=== PATIENT | male | born 1940 | race Caucasian/White ===

== ENCOUNTER → 2016-11-10 | Outpatient (REF) | payer MEDICARE, BC ==
[~2016-11-10] MED LIST: ALLE12TA31 PO; ASCO250T PO; ASPI1TAB PO; ATOR1TAB21 PO; BIMA01SOL OU; CENTTAB PO; CENTTAB16 PO; CEPH500C PO; CLOP75TA2 PO; COUM1TAB19 PO; COUM2.5T11 PO; METO25TAB PO; MOME50SP; MYRB50TA PO; OPTI0.5D5 OU; PERC5TAB6 PO; PLAV75TA38 PO; PRAV1TAB39 PO; PRAV40TA2 PO; REFR0.5D8 OU; TAMS0.4C2 PO; TIZA4CAP3 PO; TRAM50TA2 PO; TUMS500C PO; VITA-130 PO; VITA100066 PO; VITMTA PO; WARF4TAB51 PO; tylenol OR
[2016-11-10 12:23] LABS: MEAN CORPUSCULAR HEMOGLOBIN 28.3 pg (27.0-33.0); MEAN CORPUSCULAR HGB CONC 32.9 g/dl (32.0-36.5); MEAN CORPUSCULAR VOLUME 85.9 fl (80.0-96.0); RED CELL DISTRIBUTION WIDTH 16.9 % (11.5-14.5); WHITE BLOOD COUNT 9.6 K/mm3 (4.0-10.0)
[2016-11-10 12:25] LABS: CALCIUM LEVEL 9.4 MG/DL (8.8-10.2); CREATININE FOR GFR 1.33 MG/DL (0.70-1.30); GLOMERULAR FILTRATION RATE 55.4 (>42); POTASSIUM SERUM 4.9 MEQ/L (3.5-5.1)
== END ==
LOC: M SFHCPLAZ 09:24
PROVIDERS: ATTEND Family Medicine
DX: C64.2 Malignant neoplasm of left kidney, except renal pelvis (principal)
CPT/HCPCS: 36415; 80048; 85027; 85610; G0463

== ENCOUNTER → 2017-01-12 | Outpatient (REF) | payer MEDICARE, BC ==
[2017-01-12 15:52] LABS: MEAN CORPUSCULAR HEMOGLOBIN 26.5 pg (27.0-33.0); MEAN CORPUSCULAR HGB CONC 31.1 g/dl (32.0-36.5); MEAN CORPUSCULAR VOLUME 85.2 fl (80.0-96.0); RED CELL DISTRIBUTION WIDTH 15.4 % (11.5-14.5); WHITE BLOOD COUNT 9.9 K/mm3 (4.0-10.0)
[2017-01-12 15:58] LABS: ALBUMIN/GLOBULIN RATIO 0.49 (1.00-1.93); BILIRUBIN,TOTAL 0.4 MG/DL (0.2-1.0); CALCIUM LEVEL 8.8 MG/DL (8.8-10.2); CREATININE FOR GFR 1.34 MG/DL (0.70-1.30); GLOMERULAR FILTRATION RATE 54.9 (>42); TOTAL PROTEIN 6.1 GM/DL (6.4-8.2)
[2017-01-12 16:04] LABS: POTASSIUM SERUM 5.5 MEQ/L (3.5-5.1)
== END ==
LOC: M LABDRWSH 15:27
PROVIDERS: ATTEND Nurse Practitioner Family
DX: D64.9 Anemia, unspecified (principal); R06.02 Shortness of breath; N18.1 Chronic kidney disease, stage 1; Z90.5 Acquired absence of kidney

== ENCOUNTER 2017-01-14 11:49 | Inpatient (IN) | payer MEDICARE, BC ==
[~2017-01-14] VITALS: Ht 172.7 cm; Wt 76.8 kg
[2017-01-14] MEDS ORDERED: NS 1,000 ML IV SCH (12:56)
[2017-01-14] MEDS ORDERED: ONDANSETRON 4MG/2ML VIAL (J2405) IV ONE (13:00)
[2017-01-14 13:28] LABS: BASO % 0.2 % (0.0-1.0); EOS # 0.1 K/mm3 (0.0-0.50); EOS % 0.7 % (0.0-3.0); LARGE UNSTAINED CELL # 0.2 K/mm3 (0.0-0.4); LARGE UNSTAINED CELL % 1.8 % (0.0-4.0); LYMPH # 0.9 K/mm3 (1.5-4.5); LYMPH % 6.5 % (24.0-44.0); MEAN CORPUSCULAR HEMOGLOBIN 26.2 pg (27.0-33.0); NEUTROPHILS # 9.4 K/mm3 (1.8-7.7); NEUTROPHILS % 81.9 % (36.0-66.0); PLATELET COUNT, AUTOMATED 715 k/mm3 (150-450); RED CELL DISTRIBUTION WIDTH 15.5 % (11.5-14.5); WHITE BLOOD COUNT 11.5 K/mm3 (4.0-10.0)
--- NOTE | 2017-01-14 14:00 | REP ---
Clinical: Abdominal distension with pain and nausea. Comparison: 07/14/2016. Findings: Lung bases are clear. Marked ascites noted throughout the abdomen and pelvis with considerations for omental caking. The liver appears mildly decreased in size and a subtle nodular contour cannot be excluded raising the possibility of cirrhosis as well. The spleen, gallbladder, pancreas, right kidney and adrenal gland appear relatively normal for noncontrast evaluation. The patient is status post left nephrectomy. The enteric system is without obstruction. Evaluation of the pelvis is severely limited by metallic streak artifact from bilateral hip prostheses. Impression: 1. Marked ascites and suspicion for omental caking. Further evaluation is significantly limited by the lack of both oral and intravenous contrast enhancement as well as surrounding fluid density. Differential diagnosis includes but is not limited to cirrhosis and occult neoplasm. 2. The patient is noted to be status post left nephrectomy. 3. Limited evaluation pelvis is due to metallic streak artifact from bilateral hip prostheses. Signed by Jorge Inman MD 01/14/2017 01:51 P
[2017-01-14 14:29] LABS: ALBUMIN 1.8 GM/DL (3.2-5.2); ALBUMIN/GLOBULIN RATIO 0.49 (1.00-1.93); ALKALINE PHOSPHATASE 132 U/L (45-117); ALT/SGPT 24 U/L (12-78); ANION GAP 10 MEQ/L (8-16); AST/SGOT 29 U/L (15-37); BILIRUBIN,DIRECT 0.1 MG/DL (0.0-0.2); BILIRUBIN,TOTAL 0.3 MG/DL (0.2-1.0); BLOOD UREA NITROGEN 16 MG/DL (7-18); CALCIUM LEVEL 8.3 MG/DL (8.8-10.2); CARBON DIOXIDE LEVEL 23 MEQ/L (21-32); CHLORIDE LEVEL 98 MEQ/L (98-107); CREATININE FOR GFR 1.23 MG/DL (0.70-1.30); GLOMERULAR FILTRATION RATE > 60.0 (>42); GLUCOSE, FASTING 113 MG/DL (83-110); SODIUM LEVEL 131 MEQ/L (136-145); TOTAL PROTEIN 5.5 GM/DL (6.4-8.2)
[2017-01-14 14:33] LABS: POTASSIUM SERUM 5.7 MEQ/L (3.5-5.1)
[2017-01-14 15:23] LABS: INR 11.48
[2017-01-14] MEDS ORDERED: PHYTONADIONE 10MG/ML INJECTION (J3430) SC ONE (15:45)
[2017-01-14] MEDS ORDERED: WARF-58 PO (16:16)
[2017-01-14] MEDS ORDERED: PRAV80TA2 PO (16:16)
[2017-01-14] MEDS ORDERED: IMOD2TAB16 PO (16:20)
[2017-01-14] MEDS ORDERED: VICKLIQ PO (16:20)
[2017-01-14] MEDS ORDERED: ONDA1TAB15 PO (16:20)
[2017-01-14] MEDS ORDERED: VICKLIQ28 PO (16:20)
[2017-01-14] MEDS ORDERED: OMEP20CA3 PO (16:20)
[2017-01-14] MEDS ORDERED: MIRT15TA3 PO (16:20)
--- NOTE | 2017-01-14 16:30 | ECGEPIP ---
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
[2017-01-14 18:00] VITALS: BP 130/83
[2017-01-14] MEDS ORDERED: LOPERAMIDE 2 MG CAP PO PRN (18:15)
[2017-01-14] MEDS: FUROSEMIDE 40 MG TAB PO SCH (18:39)
--- NOTE | 2017-01-14 18:45 | HPEPDOC ---
General Date of Admission Jan 14, 2017 at 15:59 Chief Complaint The patient is a 76-year-old male admitted with a reason for visit of Ascites. 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 The patient states that he noticed that his abdomen has increased in size, and that he has subsequently gained weight from this. In addition, the patient states that he does feel some shortness of breath because of the distention in his abdomen. He denies any associated fevers , chills, chest pain, palpitations, PND, orthopnea, lower extremity swelling, abdominal pain, nausea, vomiting, or diarrhea. In the ER, a CT scan of the abdomen was done which revealed marked ascites and suspicion for omental caking. Interventional radiology was called for a paracentesis in the ER, however the patient was noted to have a supratherapeutic INR of 11 secondary to Coumadin use. He has been given a dose of vitamin K. At this time, the patient will be admitted under the service of Dr. Erwin for further evaluation and management of the patient. Home Medications Scheduled Ascorbic Acid (Ascorbic Acid) 250 Mg Tab 250 MG PO QPM (Reported) DINNERTIME Aspirin (Aspirin 81) 81 Mg Tab 81 MG PO DAILY (Reported) Bimatoprost (Lumigan) 50 Drop/2.5 Ml Krystle 1 DROP OU QHS (Reported) Carboxymethylcellulose Sodium (Refresh Tears) 0.5 % Juan 1 DROP OU BID (Reported ) Cholecalciferol (Vitamin D) 1,000 Unit Tab 1,000 UNIT PO QPM (Reported) DINNERTIME Mirtazapine (Mirtazapine) 15 Mg Tab 15 MG PO QHS (Reported) Multivitamins (Centrum Silver) 1 Tab Tab 1 TAB PO DAILY (Reported) Omeprazole (Omeprazole) 20 Mg Cap 20 MG PO DAILY (Reported) Pravastatin Sodium (Pravastatin Sodium) 80 Mg Tab 80 MG PO QHS (Reported) Warfarin Sod (Warfarin Sodium) 3 Mg Tab 3 MG PO QPM (Reported) DINNERTIME Scheduled PRN (Juany Dayquil Cold & Flu 10-5-325 mg/15Ml) 1 Liq Liq 1 LIQ PO PRN PRN PRN COUGH /COLD (Reported) (Vicks Nyquil Cold & Flu 15-6.25-325 mg/15Ml) 1 Liq Liq 1 LIQ PO QHS PRN PRN COUGH/COLD (Reported) Loperamide Hcl (Imodium A-D) 2 Mg Tab 2 MG PO PRN PRN PRN DIARRHEA (Reported) Ondansetron HCl (Ondansetron HCl) 4 Mg Tab 4 MG PO TID PRN PRN NAUSEA OR VOMITING (Reported) Allergies Coded Allergies: No Known Drug Allergy (Unverified Allergy, Unknown, 01/24/13) Past Medical History Medical History As noted in the HPI. Surgical History Bilateral hip replacement, left knee replacement, left-sided nephrectomy, and AAA repair Family History Significant Family History: No pertinent family hx Social History * Smoker: former Smoker (quit smoking 40 years ago) Alcohol: Denies Drugs: denies Review of Symptoms Other systems 10 point review of systems negative unless otherwise specified in HPI. Physical Examination General Exam: Positive: Alert, Cooperative, No Acute Distress ENT Exam: Positive: Atraumatic, Mucous membr. moist/pink Neck Exam: Negative: JVD Chest Exam: Positive: Diminished, Negative: Rales, Wheezing Heart Exam: Positive: Normal S1, Normal S2, Rate Normal Abdomen Exam: Positive: Other (abdomen noted to be distended, positive for fluid wave), Tenderness Extremity Exam: Negative: Swelling, Tenderness Vital Signs As noted in the EMR Laboratory Data Labs 24H Laboratory Tests 2 01/14/17 12:38: White Blood Count 11.5H, Red Blood Count 4.00L, Hemoglobin 10.5L, Hematocrit 32.8L, Mean Corpuscular Volume 82.0, Mean Corpuscular Hemoglobin 26.2L, Mean Corpuscular Hemoglobin Concent 32.0, Red Cell Distribution Width 15.5H, Platelet Count 715H, Neutrophils (%) (Auto) 81.9H, Lymphocytes (%) (Auto) 6.5L, Monocytes (%) (Auto) 9.0H, Eosinophils (%) (Auto) 0.7, Basophils (%) (Auto) 0.2 , Neutrophils # (Auto) 9.4H, Lymphocytes # (Auto) 0.9L, Monocytes # (Auto) 1.0H , Eosinophils # (Auto) 0.1, Basophils # (Auto) 0.0, Large Unclassified Cells # 0.2, Large Unclassified Cells % 1.8, Prothromb Time International Ratio 11.48*H , Prothrombin Time 88.2H 01/14/17 13:39: Aspartate Amino Transf (AST/SGOT) 29, Alanine Aminotransferase (ALT/SGPT) 24, Alkaline Phosphatase 132H, Total Bilirubin 0.3, Direct Bilirubin 0.1, Albumin 1.8L, Albumin/Globulin Ratio 0.49L, Ammonia 15, Anion Gap 10, Calcium Level 8.3L , Glomerular Filtration Rate > 60.0, Lipase 102, Total Protein 5.5L CBC/BMP Laboratory Tests 01/14/17 12:38 Red Blood Count 4.00 L, Mean Corpuscular Volume 82.0, Mean Corpuscular Hemoglobin 26.2 L, Mean Corpuscular Hemoglobin Concent 32.0, Red Cell Distribution Width 15.5 H, Neutrophils (%) (Auto) 81.9 H, Lymphocytes (%) (Auto ) 6.5 L, Monocytes (%) (Auto) 9.0 H, Eosinophils (%) (Auto) 0.7, Basophils (%) ( Auto) 0.2, Neutrophils # (Auto) 9.4 H, Lymphocytes # (Auto) 0.9 L, Monocytes # ( Auto) 1.0 H, Eosinophils # (Auto) 0.1, Basophils # (Auto) 0.0 01/14/17 13:39 Microbiology Microbiology 01/14/17 Blood Culture, Received Pending Plan / VTE VTE Prophylaxis Ordered?: No VTE Exclusion Pharmacological: Other (Elevated INR) Plan Plan Ascites possibly secondary to Neoplastic etiology, in a patient with underlying renal cell carcinoma of the left kidney status post nephrectomy CT scan of the abdomen notable for marked ascites and suspicion for omental caking We will repeat the CT scan of the abdomen with contrast for better delineation Unable to have paracentesis done today due to Coumadin coagulopathy Liver function tests otherwise within normal limits Patient started on 40 mg of Lasix twice a day Will follow-up with CT with contrast studies, and monitor I's and O's while on diuretic Coumadin coagulopathy INR noted to be 11 in the ER Hold Coumadin No active bleeding diatheses noted Hemoglobin stable Patient given 10 mg of vitamin K I have extensively discussed the risk of further possibility of blood clots upon reversal of INR levels with the patient, he has verbalized understanding of this and its risks and benefits. We'll follow-up on INR Hyperkalemia Serum potassium noted to be 5.7 EKG with no acute changes noted Patient will be started on Lasix for ascites Will follow-up on serum K in the a.m. Renal cell carcinoma of the left kidney status post nephrectomy Surgery was done at [facility] in October 2016 Serum creatinine noted to be 1.23 Will obtain records from [facility] History of abdominal aortic aneurysm status post repair in September 2016 Patient on aspirin, statin and Coumadin at home We'll withhold aspirin and Coumadin secondary to elevated INR We'll obtain records from [facility] Left renal vein thrombosis On Coumadin Currently being held given elevated INR Hypertension, stable Dyslipidemia Continue statin History of CVA Patient on aspirin, statin Will withhold aspirin now given elevated INR Osteoarthritis, stable DVT prophylaxis-patient was supratherapeutic INR at this time Patient will be admitted under the service of Dr. Erwin, who will begin to follow the patient on 01/15 at 7 AM. RADHA JORDAN MD Jan 14, 2017 18:45
[2017-01-14] MEDS: ASCORBIC ACID 250 MG TAB PO SCH (19:40)
[2017-01-14] MEDS: MIRTAZAPINE 15 MG TAB PO SCH (19:40)
[2017-01-14] MEDS: ONDANSETRON 4MG/2ML VIAL (J2405) IV PRN (19:40)
[2017-01-14] MEDS: PRAVASTATIN 20 MG TAB PO SCH (19:40)
[2017-01-14 22:00] VITALS: BP 149/72
[2017-01-15] MEDS: ONDANSETRON 4MG/2ML VIAL (J2405) IV PRN ×3 (05:20→20:41)
[2017-01-15 05:47] LABS: MEAN CORPUSCULAR HEMOGLOBIN 26.3 pg (27.0-33.0); MEAN CORPUSCULAR HGB CONC 32.3 g/dl (32.0-36.5); MEAN CORPUSCULAR VOLUME 81.5 fl (80.0-96.0); RED CELL DISTRIBUTION WIDTH 15.9 % (11.5-14.5); WHITE BLOOD COUNT 9.7 K/mm3 (4.0-10.0)
[2017-01-15 06:00] VITALS: BP 121/57
[2017-01-15 06:05] LABS: ALBUMIN 1.6 GM/DL (3.2-5.2); ALBUMIN/GLOBULIN RATIO 0.37 (1.00-1.93); BILIRUBIN,TOTAL 0.3 MG/DL (0.2-1.0); CALCIUM LEVEL 8.3 MG/DL (8.8-10.2); CREATININE FOR GFR 1.29 MG/DL (0.70-1.30); GLOMERULAR FILTRATION RATE 57.3 (>42); MAGNESIUM LEVEL 2.2 MG/DL (1.8-2.4); POTASSIUM SERUM 4.9 MEQ/L (3.5-5.1); TOTAL PROTEIN 5.9 GM/DL (6.4-8.2)
[2017-01-15 06:23] LABS: INR 8.44
[2017-01-15] MEDS ORDERED: GASTROGRAFIN SOLUTION 30ML PO ONE (07:00)
[2017-01-15] MEDS ORDERED: GASTROGRAFIN SOLUTION 30ML (Q9963) PO ONE (07:30)
[2017-01-15] MEDS: OMEPRAZOLE 20 MG CAP PO SCH ×2 (09:00→09:45)
[2017-01-15] MEDS: FUROSEMIDE 40 MG TAB PO SCH ×2 (09:45→17:38)
[2017-01-15] MEDS: MULTIVITAMINS/MINERALS THERAP 1 TAB PO SCH (09:45)
[2017-01-15] MEDS ORDERED: PHYTONADIONE 10MG/ML INJECTION (J3430) SC ONE (10:00)
[2017-01-15] MEDS: PANTOPRAZOLE 40MG INJ (PROTONIX) (C9113) IV SCH (10:50)
[2017-01-15] MEDS: METOCLOPRAMIDE INJ 10MG/2ML VIAL (J2765) IV SCH ×2 (10:50→18:02)
--- NOTE | 2017-01-15 11:28 | IPNPDOC ---
Subjective Date Seen The patient was seen on 01/15/17. Subjective Chief Complaint/HPI The patient is a 76-year-old male admitted with a reason for visit of Ascites. Events since last encounter continues to have nausea and had 1 episode of vomiting after drinking the contrast, says has noticed the abdominal distension for the past 2 weeks, has a chronic cough going on for months, no fever or chills, no chest pain or shortness of breath. Objective Physical Examination General Exam: Positive: Alert, Cooperative, No Acute Distress ENT Exam: Positive: Atraumatic, Mucous membr. moist/pink Neck Exam: Negative: JVD Chest Exam: Positive: Diminished, Negative: Rales, Wheezing Heart Exam: Positive: Normal S1, Normal S2, Rate Normal Abdomen Exam: Positive: Other (abdomen noted to be distended, positive for fluid wave), Tenderness Extremity Exam: Negative: Swelling, Tenderness Assessment /Plan Problems (1) Ascites Status: Acute Problem Text: as per CT looks like malignant ascites will tap the patient once inr is corrected. (2) Warfarin-induced coagulopathy Status: Acute Problem Text: will give another dose of vit K no signs of bleeding. (3) History of renal cell cancer Status: Chronic Problem Text: s/p left radical nephrectomy in sep 2016 in [facility] at that time the surgeon felt that he was able to remove all. has discussion with 2 oncologists about chemotherapy post surgery and they felt with his age and physical comorbidities he was not a good candidate and will not be able to tolerate it. (4) Thoracic aortic aneurysm Status: Chronic Problem Text: s/p repair at [facility] in july 2016. (5) HTN (hypertension) Status: Chronic (6) Glaucoma Status: Chronic (7) BPH (benign prostatic hyperplasia) Status: Chronic (8) Renal vein thrombosis Status: Chronic Problem Text: had left renal vein thrombosis extending upto the IVC in may 2016 (9) Hyperlipidemia Status: Chronic (10) CVA (cerebral vascular accident) Onset Date: 10/14/2014 Status: Resolved Plan/VTE VTE Prophylaxis Ordered?: Yes VTE Exclusion Pharmacological: Other (Elevated INR) VS, I&O, 24H, Fishbone Vital Signs/I&O Vital Signs Date Time Temp Pulse Resp B/P Pulse Ox O2 Delivery O2 Flow Rate FiO2 01/15/17 06:00 98.9 112 18 121/57 95 Room Air I&O- Last 24 Hours up to 6 AM 3/25/17 06:00 Intake Total 480 ml Output Total 600 ml Balance -120 ml Laboratory Data 24H LABS Laboratory Tests 2 01/14/17 12:38: White Blood Count 11.5H, Red Blood Count 4.00L, Hemoglobin 10.5L, Hematocrit 32.8L, Mean Corpuscular Volume 82.0, Mean Corpuscular Hemoglobin 26.2L, Mean Corpuscular Hemoglobin Concent 32.0, Red Cell Distribution Width 15.5H, Platelet Count 715H, Neutrophils (%) (Auto) 81.9H, Lymphocytes (%) (Auto) 6.5L, Monocytes (%) (Auto) 9.0H, Eosinophils (%) (Auto) 0.7, Basophils (%) (Auto) 0.2 , Neutrophils # (Auto) 9.4H, Lymphocytes # (Auto) 0.9L, Monocytes # (Auto) 1.0H , Eosinophils # (Auto) 0.1, Basophils # (Auto) 0.0, Large Unclassified Cells # 0.2, Large Unclassified Cells % 1.8, Prothromb Time International Ratio 11.48*H , Prothrombin Time 88.2H 01/14/17 13:39: Aspartate Amino Transf (AST/SGOT) 29, Alanine Aminotransferase (ALT/SGPT) 24, Alkaline Phosphatase 132H, Total Bilirubin 0.3, Direct Bilirubin 0.1, Albumin 1.8L, Albumin/Globulin Ratio 0.49L, Ammonia 15, Anion Gap 10, Calcium Level 8.3L , Glomerular Filtration Rate > 60.0, Lipase 102, Total Protein 5.5L 01/15/17 05:18: Prothromb Time International Ratio 8.44*H, Prothrombin Time 69.5H, Aspartate Amino Transf (AST/SGOT) 27, Alanine Aminotransferase (ALT/SGPT) 21, Alkaline Phosphatase 119H, Total Bilirubin 0.3, Albumin 1.6L, Albumin/Globulin Ratio 0.37L, Anion Gap 10, Calcium Level 8.3L, Glomerular Filtration Rate 57.3, Total Protein 5.9L, Blood Urea Nitrogen 15, Creatinine 1.29, Sodium Level 132L, Potassium Level 4.9, Chloride Level 98, Carbon Dioxide Level 24, Magnesium Level 2.2 CBC/BMP Laboratory Tests 01/14/17 12:38 Red Blood Count 4.00 L, Mean Corpuscular Volume 82.0, Mean Corpuscular Hemoglobin 26.2 L, Mean Corpuscular Hemoglobin Concent 32.0, Red Cell Distribution Width 15.5 H, Neutrophils (%) (Auto) 81.9 H, Lymphocytes (%) (Auto ) 6.5 L, Monocytes (%) (Auto) 9.0 H, Eosinophils (%) (Auto) 0.7, Basophils (%) ( Auto) 0.2, Neutrophils # (Auto) 9.4 H, Lymphocytes # (Auto) 0.9 L, Monocytes # ( Auto) 1.0 H, Eosinophils # (Auto) 0.1, Basophils # (Auto) 0.0 01/14/17 13:39 01/15/17 05:18 Red Blood Count 3.38 L, Mean Corpuscular Volume 81.5, Mean Corpuscular Hemoglobin 26.3 L, Mean Corpuscular Hemoglobin Concent 32.3, Red Cell Distribution Width 15.9 H, Calcium Level 8.3 L, Aspartate Amino Transf (AST/SGOT ) 27, Alanine Aminotransferase (ALT/SGPT) 21, Alkaline Phosphatase 119 H, Total Bilirubin 0.3, Total Protein 5.9 L, Albumin 1.6 L Microbiology Microbiology 01/14/17 Blood Culture, Received Pending 01/14/17 Blood Culture, Received Pending IAIN LAYTON MD Jan 15, 2017 11:28
[2017-01-15 14:00] VITALS: BP 111/56
[2017-01-15] MEDS: MIRTAZAPINE 15 MG TAB PO SCH (20:41)
[2017-01-15] MEDS: ASCORBIC ACID 250 MG TAB PO SCH (20:41)
[2017-01-15] MEDS: PRAVASTATIN 20 MG TAB PO SCH (20:41)
[2017-01-15 22:00] VITALS: BP 104/58
[2017-01-16] MEDS: METOCLOPRAMIDE INJ 10MG/2ML VIAL (J2765) IV SCH ×3 (03:59→18:15)
[2017-01-16 05:29] LABS: MEAN CORPUSCULAR HGB CONC 32.7 g/dl (32.0-36.5); MEAN CORPUSCULAR VOLUME 79.4 fl (80.0-96.0); RED CELL DISTRIBUTION WIDTH 15.7 % (11.5-14.5); WHITE BLOOD COUNT 10.1 K/mm3 (4.0-10.0)
[2017-01-16 05:34] LABS: INR 3.39
[2017-01-16 05:45] LABS: ALBUMIN 1.5 GM/DL (3.2-5.2); ALBUMIN/GLOBULIN RATIO 0.34 (1.00-1.93); BILIRUBIN,TOTAL 0.4 MG/DL (0.2-1.0); CALCIUM LEVEL 8.2 MG/DL (8.8-10.2); CREATININE FOR GFR 1.41 MG/DL (0.70-1.30); GLOMERULAR FILTRATION RATE 51.8 (>42); POTASSIUM SERUM 4.8 MEQ/L (3.5-5.1); TOTAL PROTEIN 5.9 GM/DL (6.4-8.2)
[2017-01-16 06:00] VITALS: BP 105/53
--- NOTE | 2017-01-16 06:01 | IPNPDOC ---
Subjective Date Seen The patient was seen on 01/16/17. Subjective Chief Complaint/HPI The patient is a 76-year-old male admitted with a reason for visit of Ascites. Events since last encounter no new complaints today , has intermitten nausea , INR almost corrected. Objective Physical Examination General Exam: Positive: Alert, Cooperative, No Acute Distress ENT Exam: Positive: Atraumatic, Mucous membr. moist/pink Neck Exam: Negative: JVD Chest Exam: Positive: Diminished, Negative: Rales, Wheezing Heart Exam: Positive: Normal S1, Normal S2, Rate Normal Abdomen Exam: Positive: Other (abdomen noted to be distended, positive for fluid wave), Tenderness Extremity Exam: Negative: Swelling, Tenderness Assessment /Plan Problems (1) Ascites Status: Acute Problem Text: as per CT looks like malignant ascites will tap the patient once inr is corrected. (2) Warfarin-induced coagulopathy Status: Acute Problem Text: will give another dose of vit K no signs of bleeding. (3) History of renal cell cancer Status: Chronic Problem Text: s/p left radical nephrectomy in sep 2016 in [facility] at that time the surgeon felt that he was able to remove all. has discussion with 2 oncologists about chemotherapy post surgery and they felt with his age and physical comorbidities he was not a good candidate and will not be able to tolerate it. (4) Thoracic aortic aneurysm Status: Chronic Problem Text: s/p repair at [facility] in july 2016. (5) HTN (hypertension) Status: Chronic (6) Glaucoma Status: Chronic (7) BPH (benign prostatic hyperplasia) Status: Chronic (8) Renal vein thrombosis Status: Chronic Problem Text: had left renal vein thrombosis extending upto the IVC in may 2016 (9) Hyperlipidemia Status: Chronic (10) CVA (cerebral vascular accident) Onset Date: 10/14/2014 Status: Resolved Plan/VTE VTE Prophylaxis Ordered?: Yes VTE Exclusion Pharmacological: Other (Elevated INR) VS, I&O, 24H, Fishbone Vital Signs/I&O Vital Signs Date Time Temp Pulse Resp B/P Pulse Ox O2 Delivery O2 Flow Rate FiO2 01/15/17 22:00 99.4 109 20 104/58 96 Room Air I&O- Last 24 Hours up to 6 AM 01/16/17 06:00 Intake Total 900 ml Output Total 300 ml Balance 600 ml Laboratory Data 24H LABS Laboratory Tests 2 01/16/17 05:10: Blood Urea Nitrogen 18, Creatinine 1.41H, Sodium Level 132L, Potassium Level 4.8 , Chloride Level 97L, Carbon Dioxide Level 25, Calcium Level 8.2L, Aspartate Amino Transf (AST/SGOT) 33, Alanine Aminotransferase (ALT/SGPT) 23, Alkaline Phosphatase 126H, Total Bilirubin 0.4, Total Protein 5.9L, Albumin 1.5L, Albumin /Globulin Ratio 0.34L, Anion Gap 10, Glomerular Filtration Rate 51.8, Prothromb Time International Ratio 3.39, Prothrombin Time 34.3H CBC/BMP Laboratory Tests 01/16/17 05:10 Calcium Level 8.2 L, Aspartate Amino Transf (AST/SGOT) 33, Alanine Aminotransferase (ALT/SGPT) 23, Alkaline Phosphatase 126 H, Total Bilirubin 0.4 , Total Protein 5.9 L, Albumin 1.5 L, Red Blood Count 3.46 L, Mean Corpuscular Volume 79.4 L, Mean Corpuscular Hemoglobin 26.0 L, Mean Corpuscular Hemoglobin Concent 32.7, Red Cell Distribution Width 15.7 H Microbiology Microbiology 01/14/17 Blood Culture - Preliminary, Resulted No growth after 24 hours . All specim... 01/14/17 Blood Culture - Preliminary, Resulted No growth after 24 hours . All specim... IAIN LAYTON MD Jan 16, 2017 06:01
--- NOTE | 2017-01-16 09:32 | REP ---
Clinical: Ascites. Possible metastatic disease. Comparison: 01/14/2017, 07/14/2016. Findings: Marked ascites and mesenteric edematous changes are again appreciated and unchanged when compared to 01/14/2017. Underlying adenopathy and/or mass lesions within the abdomen and pelvis may be obscured by surrounding ascites. Omental caking suggesting metastatic disease versus benign edematous infiltration to the omentum cannot be differentiated. The enteric system is unremarkable. The liver has a subtle coarsened echotexture and underlying hepatic metastatic disease versus hepatocellular disease cannot be excluded. Spleen, pancreas, gallbladder, right adrenal gland and kidney appear normal. Pelvis is incompletely evaluated due to metallic streak artifact from bilateral hip prostheses. Osseous structures demonstrate nonspecific degenerative type changes. Impression: Marked ascites and edematous changes to the mesentery similar to prior examination. Underlying adenopathy and metastatic disease as well as mass lesion cannot be excluded and may be is obscured by surrounding fluid. Signed by Jorge Inman MD 01/16/2017 09:23 A
[2017-01-16] MEDS: MULTIVITAMINS/MINERALS THERAP 1 TAB PO SCH (10:45)
[2017-01-16] MEDS: FUROSEMIDE 40 MG TAB PO SCH (10:45)
[2017-01-16] MEDS: PANTOPRAZOLE 40MG INJ (PROTONIX) (C9113) IV SCH (10:45)
[2017-01-16] MEDS: BENZONATATE 100 MG CAP PO PRN (16:34)
[2017-01-16] MEDS: ONDANSETRON 4MG/2ML VIAL (J2405) IV PRN (16:44)
[2017-01-16] MEDS: ASCORBIC ACID 250 MG TAB PO SCH (20:32)
[2017-01-16] MEDS: MIRTAZAPINE 15 MG TAB PO SCH (20:33)
[2017-01-16] MEDS: PRAVASTATIN 20 MG TAB PO SCH (20:33)
[2017-01-16 22:00] VITALS: BP 111/70
[2017-01-17] MEDS: METOCLOPRAMIDE INJ 10MG/2ML VIAL (J2765) IV SCH ×3 (03:56→18:54)
[2017-01-17 06:00] VITALS: BP 114/58
[2017-01-17 06:47] LABS: MEAN CORPUSCULAR HEMOGLOBIN 25.8 pg (27.0-33.0); MEAN CORPUSCULAR HGB CONC 32.2 g/dl (32.0-36.5); MEAN CORPUSCULAR VOLUME 80.1 fl (80.0-96.0); RED CELL DISTRIBUTION WIDTH 15.7 % (11.5-14.5); WHITE BLOOD COUNT 9.6 K/mm3 (4.0-10.0)
[2017-01-17 06:49] LABS: INR 2.27
[2017-01-17 07:03] LABS: ALBUMIN 1.5 GM/DL (3.2-5.2); ALBUMIN/GLOBULIN RATIO 0.34 (1.00-1.93); BILIRUBIN,TOTAL 0.3 MG/DL (0.2-1.0); CALCIUM LEVEL 8.1 MG/DL (8.8-10.2); CREATININE FOR GFR 1.29 MG/DL (0.70-1.30); GLOMERULAR FILTRATION RATE 57.3 (>42); POTASSIUM SERUM 4.5 MEQ/L (3.5-5.1); TOTAL PROTEIN 5.9 GM/DL (6.4-8.2)
[2017-01-17] MEDS: MULTIVITAMINS/MINERALS THERAP 1 TAB PO SCH (08:41)
--- NOTE | 2017-01-17 08:58 | IPNPDOC ---
Subjective Date Seen The patient was seen on 01/17/17. Subjective Chief Complaint/HPI The patient is a 76-year-old male admitted with a reason for visit of Ascites. Events since last encounter no diarrhea overnight. Had last diarrhea last night. INR better. planned for paracentesis today. Objective Physical Examination General Exam: Positive: Alert, Cooperative, No Acute Distress ENT Exam: Positive: Atraumatic, Mucous membr. moist/pink Neck Exam: Negative: JVD Chest Exam: Positive: Diminished, Negative: Rales, Wheezing Heart Exam: Positive: Normal S1, Normal S2, Rate Normal Abdomen Exam: Positive: Other (abdomen noted to be distended, positive for fluid wave), Tenderness Extremity Exam: Negative: Swelling, Tenderness Assessment /Plan Problems (1) Ascites Status: Acute Problem Text: as per CT looks like malignant ascites will tap the patient once inr is corrected. (2) Warfarin-induced coagulopathy Status: Acute Problem Text: will give another dose of vit K no signs of bleeding. (3) History of renal cell cancer Status: Chronic Problem Text: s/p left radical nephrectomy in sep 2016 in [facility] at that time the surgeon felt that he was able to remove all. has discussion with 2 oncologists about chemotherapy post surgery and they felt with his age and physical comorbidities he was not a good candidate and will not be able to tolerate it. (4) Thoracic aortic aneurysm Status: Chronic Problem Text: s/p repair at [facility] in july 2016. (5) HTN (hypertension) Status: Chronic (6) Glaucoma Status: Chronic (7) BPH (benign prostatic hyperplasia) Status: Chronic (8) Renal vein thrombosis Status: Chronic Problem Text: had left renal vein thrombosis extending upto the IVC in may 2016 (9) Hyperlipidemia Status: Chronic (10) CVA (cerebral vascular accident) Onset Date: 10/14/2014 Status: Resolved Plan/VTE VTE Prophylaxis Ordered?: Yes VTE Exclusion Pharmacological: Other (Elevated INR) VS, I&O, 24H, Fishbone Vital Signs/I&O Vital Signs Date Time Temp Pulse Resp B/P Pulse Ox O2 Delivery O2 Flow Rate FiO2 01/17/17 06:00 98.6 109 20 114/58 94 Room Air I&O- Last 24 Hours up to 6 AM 01/17/17 06:00 Intake Total 1740 ml Output Total 50 ml Balance 1690 ml Laboratory Data 24H LABS Laboratory Tests 2 01/17/17 06:04: Blood Urea Nitrogen 21H, Creatinine 1.29, Sodium Level 132L, Potassium Level 4.5 , Chloride Level 97L, Carbon Dioxide Level 24, Calcium Level 8.1L, Aspartate Amino Transf (AST/SGOT) 67H, Alanine Aminotransferase (ALT/SGPT) 38, Alkaline Phosphatase 132H, Total Bilirubin 0.3, Total Protein 5.9L, Albumin 1.5L, Albumin /Globulin Ratio 0.34L, Anion Gap 11, Glomerular Filtration Rate 57.3, Prothromb Time International Ratio 2.27, Prothrombin Time 25.1H CBC/BMP Laboratory Tests 01/17/17 06:04 Calcium Level 8.1 L, Aspartate Amino Transf (AST/SGOT) 67 H, Alanine Aminotransferase (ALT/SGPT) 38, Alkaline Phosphatase 132 H, Total Bilirubin 0.3 , Total Protein 5.9 L, Albumin 1.5 L, Red Blood Count 3.37 L, Mean Corpuscular Volume 80.1, Mean Corpuscular Hemoglobin 25.8 L, Mean Corpuscular Hemoglobin Concent 32.2, Red Cell Distribution Width 15.7 H Microbiology Microbiology 01/14/17 Blood Culture - Preliminary, Resulted No Growth after 48 hours. All Specime... 01/14/17 Blood Culture - Preliminary, Resulted No Growth after 48 hours. All Specime... 01/16/17 Gastrointestinal Tract Panel (PCR) - Final, Complete IAIN LAYTON MD Jan 17, 2017 08:58
[2017-01-17] MEDS: PANTOPRAZOLE 40MG INJ (PROTONIX) (C9113) IV SCH (10:24)
[2017-01-17] MEDS ORDERED: PHYTONADIONE 5 MG TAB PO ONE (12:00)
[2017-01-17 14:00] VITALS: BP 125/72
[2017-01-17] MEDS: ONDANSETRON 4MG/2ML VIAL (J2405) IV PRN (14:56)
[2017-01-17] MEDS: LOPERAMIDE 2 MG CAP PO PRN (16:31)
[2017-01-17] MEDS: MIRTAZAPINE 15 MG TAB PO SCH (20:36)
[2017-01-17] MEDS: PRAVASTATIN 20 MG TAB PO SCH (20:36)
[2017-01-17] MEDS: ASCORBIC ACID 250 MG TAB PO SCH (20:36)
[2017-01-17 22:00] VITALS: BP 108/62
[2017-01-17] MEDS: LATANOPROST 0.005% OPHTH SOLN 2.5 ML OU SCH (22:14)
[2017-01-18] MEDS: METOCLOPRAMIDE INJ 10MG/2ML VIAL (J2765) IV SCH ×3 (03:03→18:15)
[2017-01-18 06:00] VITALS: BP 115/55
[2017-01-18 06:36] LABS: MEAN CORPUSCULAR HEMOGLOBIN 25.4 pg (27.0-33.0); MEAN CORPUSCULAR HGB CONC 31.9 g/dl (32.0-36.5); MEAN CORPUSCULAR VOLUME 79.5 fl (80.0-96.0); RED CELL DISTRIBUTION WIDTH 15.9 % (11.5-14.5)
[2017-01-18 06:40] LABS: INR 1.73
[2017-01-18 07:01] LABS: ALBUMIN 1.5 GM/DL (3.2-5.2); ALBUMIN/GLOBULIN RATIO 0.34 (1.00-1.93); BILIRUBIN,TOTAL 0.4 MG/DL (0.2-1.0); CALCIUM LEVEL 8.1 MG/DL (8.8-10.2); CREATININE FOR GFR 1.25 MG/DL (0.70-1.30); GLOMERULAR FILTRATION RATE 59.5 (>42); POTASSIUM SERUM 4.6 MEQ/L (3.5-5.1); TOTAL PROTEIN 5.9 GM/DL (6.4-8.2)
[2017-01-18] MEDS: MULTIVITAMINS/MINERALS THERAP 1 TAB PO SCH (08:36)
[2017-01-18] MEDS: ONDANSETRON 4MG/2ML VIAL (J2405) IV PRN ×3 (08:51→22:49)
[2017-01-18] MEDS: BENZONATATE 100 MG CAP PO PRN (08:51)
[2017-01-18 11:30] VITALS: BP 130/68
[2017-01-18] MEDS: PANTOPRAZOLE 40MG INJ (PROTONIX) (C9113) IV SCH (11:52)
[2017-01-18 12:03] LABS: SPEC. GRAVITY BODY FLUIDS 1.028 (NOT ESTABLISHED)
[2017-01-18 12:20] LABS: TOTAL PROTEIN, BODY FLUID 4.4 G/DL (NOT ESTABLISHED)
[2017-01-18 12:21] LABS: RBC ASCITES FLUID 54 (<10mm3 cells/uL); TNC ASCITES FLUID 556 cells/uL (0-20)
[2017-01-18 12:22] LABS: BF DIFF IF INDICATED? YES (NO)
[2017-01-18 13:00] LABS: CC BF DIFF EXAM CYTOCENTRIFUGE
[2017-01-18 14:00] VITALS: BP 118/62
--- NOTE | 2017-01-18 15:02 | IPNPDOC ---
Subjective Date Seen The patient was seen on 01/18/17. Subjective Chief Complaint/HPI The patient is a 76-year-old male admitted with a reason for visit of Ascites. Events since last encounter pt seen and examined, doing well, denies any abd pain but complaining of low back pain. Objective Physical Examination General Exam: Positive: Alert, Cooperative, No Acute Distress ENT Exam: Positive: Atraumatic, Mucous membr. moist/pink Neck Exam: Negative: JVD Chest Exam: Positive: Diminished, Negative: Rales, Wheezing Heart Exam: Positive: Normal S1, Normal S2, Rate Normal Abdomen Exam: Positive: Other (abdomen noted to be distended, positive for fluid wave), Tenderness Extremity Exam: Negative: Swelling, Tenderness Assessment /Plan Problems (1) Ascites Status: Acute Problem Text: * as per CT looks like malignant ascites * paracentesis today (2) Warfarin-induced coagulopathy Status: Resolved Problem Text: no signs of bleeding. (3) History of renal cell cancer Status: Chronic Problem Text: s/p left radical nephrectomy in sep 2016 in [facility] at that time the surgeon felt that he was able to remove all. has discussion with 2 oncologists about chemotherapy post surgery and they felt with his age and physical comorbidities he was not a good candidate and will not be able to tolerate it. (4) Thoracic aortic aneurysm Status: Chronic Problem Text: s/p repair at [facility] in july 2016. (5) HTN (hypertension) Status: Chronic (6) Glaucoma Status: Chronic (7) BPH (benign prostatic hyperplasia) Status: Chronic (8) Renal vein thrombosis Status: Chronic Problem Text: had left renal vein thrombosis extending upto the IVC in may 2016 (9) Hyperlipidemia Status: Chronic (10) CVA (cerebral vascular accident) Onset Date: 10/14/2014 Status: Resolved Plan/VTE VTE Prophylaxis Ordered?: Yes VTE Exclusion Pharmacological: Other (Elevated INR) VS, I&O, 24H, Fishbone Vital Signs/I&O Vital Signs Date Time Temp Pulse Resp B/P Pulse Ox O2 Delivery O2 Flow Rate FiO2 01/18/17 11:30 98.3 105 14 130/68 95 Room Air I&O- Last 24 Hours up to 6 AM 01/18/17 06:00 Intake Total 660 ml Output Total 0 ml Balance 660 ml Laboratory Data 24H LABS Laboratory Tests 2 01/18/17 06:09: Blood Urea Nitrogen 20H, Creatinine 1.25, Sodium Level 131L, Potassium Level 4.6 , Chloride Level 98, Carbon Dioxide Level 25, Calcium Level 8.1L, Aspartate Amino Transf (AST/SGOT) 105H, Alanine Aminotransferase (ALT/SGPT) 60, Alkaline Phosphatase 143H, Total Bilirubin 0.4, Total Protein 5.9L, Albumin 1.5L, Albumin /Globulin Ratio 0.34L, Anion Gap 8, Glomerular Filtration Rate 59.5, Prothromb Time International Ratio 1.73, Prothrombin Time 20.3H 01/18/17 11:00: Body Fluid Albumin 1.7, Body Fluid Appearance HAZY, Body Fluid Color CHANCE, Body Fluid Glucose 79, Body Fluid Lymphocytes 58, Body Fluid Monocytes/ Macrophages 22, Body Fluid Neutrophils 20, Body Fluid RBC (Auto) 54, Body Fluid Source ASCITES, Body Fluid Specific Apex 1.028, Body Fluid Total Nucleated Cells 556H, Body Fluid Total Protein 4.4 CBC/BMP Laboratory Tests 01/18/17 06:09 Calcium Level 8.1 L, Aspartate Amino Transf (AST/SGOT) 105 H, Alanine Aminotransferase (ALT/SGPT) 60, Alkaline Phosphatase 143 H, Total Bilirubin 0.4 , Total Protein 5.9 L, Albumin 1.5 L, Red Blood Count 3.45 L, Mean Corpuscular Volume 79.5 L, Mean Corpuscular Hemoglobin 25.4 L, Mean Corpuscular Hemoglobin Concent 31.9 L, Red Cell Distribution Width 15.9 H Microbiology Microbiology 01/14/17 Blood Culture - Preliminary, Resulted No Growth after 72 hours. All specime... 01/14/17 Blood Culture - Preliminary, Resulted No Growth after 72 hours. All specime... 01/18/17 Acid Fast Stain, Received Pending 01/18/17 Mycobacterial Culture, Received Pending 01/18/17 Fungal Smear, Received Pending 01/18/17 Fungal Culture, Received Pending 01/18/17 Gram Stain - Final, Resulted 01/18/17 Body Fluid Culture, Resulted Pending 01/18/17 Anaerobic Culture, Resulted Pending 01/16/17 Gastrointestinal Tract Panel (PCR) - Final, Complete IRMA DYER DO Jan 18, 2017 15:02
--- NOTE | 2017-01-18 16:03 | REP ---
ULTRASOUND GUIDED PARACENTESIS: The procedure was performed under the direct supervision of Dr. Parker. The risks and benefits of the procedure were explained to the patient and informed consent was obtained. The largest pocket of fluid was localized in the left flank using ultrasound guidance. The skin was prepped and draped in a sterile fashion. 1% Lidocaine was used as a local anesthetic. Using ultrasound guidance an #8-Turkmen [id number]-dyxb-lhtk catheter was inserted using trocar technique. 1200 mL of low viscosity red-colored fluid was withdrawn and sent to the lab. The patient tolerated the procedure well and there were no immediate complications. Reviewed by KAREY Hawkins 01/18/2017 04:31 PEdited and Signed by Bunny Parker MD 01/18/2017 05:00 P
[2017-01-18] MEDS: MIRTAZAPINE 15 MG TAB PO SCH (20:28)
[2017-01-18] MEDS: ASCORBIC ACID 250 MG TAB PO SCH (20:28)
[2017-01-18] MEDS: PRAVASTATIN 20 MG TAB PO SCH (20:28)
[2017-01-18] MEDS: LATANOPROST 0.005% OPHTH SOLN 2.5 ML OU SCH (20:28)
[2017-01-18 22:00] VITALS: BP 113/61
[2017-01-19] MEDS: METOCLOPRAMIDE INJ 10MG/2ML VIAL (J2765) IV SCH ×3 (02:45→18:45)
[2017-01-19 05:59] VITALS: BP 100/51
[2017-01-19 06:25] LABS: MEAN CORPUSCULAR HEMOGLOBIN 25.5 pg (27.0-33.0); MEAN CORPUSCULAR HGB CONC 31.8 g/dl (32.0-36.5); MEAN CORPUSCULAR VOLUME 80.1 fl (80.0-96.0); RED CELL DISTRIBUTION WIDTH 16.1 % (11.5-14.5); WHITE BLOOD COUNT 11.4 K/mm3 (4.0-10.0)
[2017-01-19 06:31] LABS: INR 1.53
[2017-01-19 06:47] LABS: ALBUMIN 1.5 GM/DL (3.2-5.2); ALBUMIN/GLOBULIN RATIO 0.33 (1.00-1.93); BILIRUBIN,TOTAL 0.4 MG/DL (0.2-1.0); CALCIUM LEVEL 8.1 MG/DL (8.8-10.2); CREATININE FOR GFR 1.3 MG/DL (0.70-1.30); GLOMERULAR FILTRATION RATE 56.8 (>42); POTASSIUM SERUM 4.9 MEQ/L (3.5-5.1)
[2017-01-19] MEDS: MULTIVITAMINS/MINERALS THERAP 1 TAB PO SCH (08:23)
--- NOTE | 2017-01-19 11:10 | IPNPDOC ---
Subjective Date Seen The patient was seen on 01/19/17. Subjective Chief Complaint/HPI The patient is a 76-year-old male admitted with a reason for visit of Ascites. Events since last encounter pt seen and examined, still complaining of nausea, no vomiting, can't tolerate oral intake, last bowel movement was on 01/17. tolerated Paracentesis yesterday took out 1200cc of fluids. had low grade temp of 100.5 Constitutional: Reports: Fever Gastrointestinal: Reports: Abdominal Pain, Nausea Objective Physical Examination General Exam: Positive: Alert, Cooperative, No Acute Distress ENT Exam: Positive: Atraumatic, Mucous membr. 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 * will continue to hold until we figure out terminologist plan (3) History of renal cell cancer Status: Chronic Problem Text: * s/p left radical nephrectomy in sep 2016 in [facility] at that time the surgeon felt that he was able to remove all. * has discussion with 2 oncologists about chemotherapy post surgery and they felt with his age and physical comorbidities he was not a good candidate and will not be able to tolerate it. 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 (5) HTN (hypertension) Status: Chronic (6) Glaucoma Status: Chronic (7) BPH (benign prostatic hyperplasia) Status: Chronic (8) Renal vein thrombosis Status: Chronic Problem Text: had left renal vein thrombosis extending upto the IVC in may 2016 (9) Hyperlipidemia Status: Chronic (10) CVA (cerebral vascular accident) Onset Date: 10/14/2014 Status: Resolved Plan/VTE VTE Prophylaxis Ordered?: Yes VTE Exclusion Pharmacological: Other (Elevated INR) Plan Advance Directives: DNR Disposition Pt's symptoms likely secondary to metastatic disease, family and pt are aware of poor prognosis, will wait for final path report prior to hospice consult VS, I&O, 24H, Fishbone Vital Signs/I&O Vital Signs Date Time Temp Pulse Resp B/P Pulse Ox O2 Delivery O2 Flow Rate FiO2 01/19/17 05:59 99.6 111 17 100/51 95 Room Air I&O- Last 24 Hours up to 6 AM 01/19/17 06:00 Intake Total 780 ml Output Total 400 ml Balance 380 ml Laboratory Data 24H LABS Laboratory Tests 2 01/19/17 06:11: Blood Urea Nitrogen 25H, Creatinine 1.30, Sodium Level 131L, Potassium Level 4.9 , Chloride Level 99, Carbon Dioxide Level 25, Calcium Level 8.1L, Aspartate Amino Transf (AST/SGOT) 113H, Alanine Aminotransferase (ALT/SGPT) 69, Alkaline Phosphatase 151H, Total Bilirubin 0.4, Total Protein 6.0L, Albumin 1.5L, Albumin /Globulin Ratio 0.33L, Anion Gap 7L, Glomerular Filtration Rate 56.8, Prothromb Time International Ratio 1.53, Prothrombin Time 18.5H CBC/BMP Laboratory Tests 01/19/17 06:11 Calcium Level 8.1 L, Aspartate Amino Transf (AST/SGOT) 113 H, Alanine Aminotransferase (ALT/SGPT) 69, Alkaline Phosphatase 151 H, Total Bilirubin 0.4 , Total Protein 6.0 L, Albumin 1.5 L, Red Blood Count 3.50 L, Mean Corpuscular Volume 80.1, Mean Corpuscular Hemoglobin 25.5 L, Mean Corpuscular Hemoglobin Concent 31.8 L, Red Cell Distribution Width 16.1 H Microbiology Microbiology 01/14/17 Blood Culture - Preliminary, Resulted No Growth after 72 hours. All specime... 01/14/17 Blood Culture - Preliminary, Resulted No Growth after 72 hours. All specime... 01/18/17 Acid Fast Stain, Received Pending 01/18/17 Mycobacterial Culture, Received Pending 01/18/17 Fungal Smear, Received Pending 01/18/17 Fungal Culture, Received Pending 01/18/17 Gram Stain - Final, Resulted 01/18/17 Body Fluid Culture, Resulted Pending 01/18/17 Anaerobic Culture, Resulted Pending 01/16/17 Gastrointestinal Tract Panel (PCR) - Final, Complete IRMA DYER DO Jan 19, 2017 11:10
[2017-01-19] MEDS ORDERED: GASTROGRAFIN SOLUTION 30ML PO ONE (11:30)
[2017-01-19] MEDS: PIPERACILLIN/TAZOBACTAM SOD 3.375 GM in D5W MINI-BAG PLUS 50 ML IV SCH ×3 (11:53→23:19)
[2017-01-19] MEDS: PANTOPRAZOLE 40MG INJ (PROTONIX) (C9113) IV SCH (11:53)
[2017-01-19] MEDS ORDERED: GASTROGRAFIN SOLUTION 30ML (Q9963) PO ONE (12:00)
[2017-01-19 14:00] VITALS: BP 113/56
[2017-01-19] MEDS ORDERED: ISOVUE-370 76% 100ML VIAL (Q9967) As Ordered ONE (14:31)
--- NOTE | 2017-01-19 15:16 | REP ---
Clinical: Metastatic disease. History of left nephrectomy for renal cell carcinoma. Technique: Axial contrast enhanced images from the lung bases to the pubic symphysis using oral and 100 ml Isovue 370 intravenous contrast material with coronal and sagittal re-formations. Comparison: 01/15/2017, 07/14/2016. Findings: Marked ascites noted throughout the abdomen and pelvis along with irregular prominent thickened omental tissue. Ascites in the right upper quadrant outlines subtle nodularity to the undersurface of the right hemidiaphragm which may reflect metastatic seeding few other soft tissue nodules cannot be excluded within the right lower quadrant (image 82). The liver demonstrates a somewhat heterogeneous parenchymal texture with finding microcystic changes primarily involving the left lobe as well as a geographic area of hyperenhancement in the right lobe approaching the dome and these findings cannot exclude an underlying infiltrating hepatic abnormality and/or underlying hepatocellular disease. Spleen, pancreas, gallbladder, right adrenal gland and kidney appear normal. Incidental note is made of a ureteral stent extending from the proximal right ureter distal to the renal pelvis into the bladder. The patient is status post radical left nephrectomy. There is no evidence for bowel obstruction and the transverse colon has a irregular thinned appearance with submucosal infiltration which is nonspecific and possibly related to inflammatory changes due to longstanding surrounding ascites although colitis cannot be excluded. No obvious adenopathy is appreciated. Evaluation of the pelvis is significantly limited due to metallic streak artifact from bilateral hip prostheses. The visualized osseous structures demonstrate degenerative changes. The lung bases are relatively clear. Impression: Marked ascites along with the irregular thickened omental tissue and possible soft tissue nodularity along the undersurface of the right hemidiaphragm as well as changes to the liver and transverse colon as described above may be related to primary malignancy versus metastatic disease given the patient's history of prior nephrectomy for renal cell carcinoma. Findings detailed above and correlation with paracentesis is recommended. Signed by Jorge Inman MD 01/19/2017 03:08 P
[2017-01-19] MEDS: ONDANSETRON 4MG/2ML VIAL (J2405) IV PRN ×2 (17:03→23:19)
[2017-01-19] MEDS: PRAVASTATIN 20 MG TAB PO SCH (19:53)
[2017-01-19] MEDS: MIRTAZAPINE 15 MG TAB PO SCH (19:53)
[2017-01-19] MEDS: ASCORBIC ACID 250 MG TAB PO SCH (19:53)
[2017-01-19] MEDS: LATANOPROST 0.005% OPHTH SOLN 2.5 ML OU SCH (19:53)
[2017-01-19 22:00] VITALS: BP 118/66
[2017-01-20] MEDS: METOCLOPRAMIDE INJ 10MG/2ML VIAL (J2765) IV SCH ×3 (02:08→18:26)
[2017-01-20] MEDS: ONDANSETRON 4MG/2ML VIAL (J2405) IV PRN ×3 (05:41→22:44)
[2017-01-20] MEDS: PIPERACILLIN/TAZOBACTAM SOD 3.375 GM in D5W MINI-BAG PLUS 50 ML IV SCH ×4 (05:42→22:44)
[2017-01-20 06:00] VITALS: BP 108/55
[2017-01-20 06:50] LABS: MEAN CORPUSCULAR HEMOGLOBIN 25.5 pg (27.0-33.0); MEAN CORPUSCULAR HGB CONC 31.6 g/dl (32.0-36.5); MEAN CORPUSCULAR VOLUME 80.7 fl (80.0-96.0); RED CELL DISTRIBUTION WIDTH 15.9 % (11.5-14.5); WHITE BLOOD COUNT 10.5 K/mm3 (4.0-10.0)
[2017-01-20 06:55] LABS: INR 1.52
[2017-01-20 07:15] LABS: ALBUMIN 1.4 GM/DL (3.2-5.2); ALBUMIN/GLOBULIN RATIO 0.41 (1.00-1.93); BILIRUBIN,TOTAL 0.5 MG/DL (0.2-1.0); CALCIUM LEVEL 7.6 MG/DL (8.8-10.2); CREATININE FOR GFR 1.52 MG/DL (0.70-1.30); GLOMERULAR FILTRATION RATE 47.5 (>42); POTASSIUM SERUM 4.8 MEQ/L (3.5-5.1); TOTAL PROTEIN 4.8 GM/DL (6.4-8.2)
[2017-01-20] MEDS: MULTIVITAMINS/MINERALS THERAP 1 TAB PO SCH (08:20)
[2017-01-20] MEDS: PANTOPRAZOLE 40MG INJ (PROTONIX) (C9113) IV SCH (10:37)
--- NOTE | 2017-01-20 16:22 | IPNPDOC ---
Subjective Date Seen The patient was seen on 01/20/17. Subjective Chief Complaint/HPI The patient is a 76-year-old male admitted with a reason for visit of Ascites. Objective Physical Examination General Exam: Positive: Alert, Cooperative, No Acute Distress ENT Exam: Positive: Atraumatic, Mucous membr. 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 * will continue to hold until we figure out mcfp plan (3) History of renal cell cancer Status: Chronic Problem Text: * s/p left radical nephrectomy in sep 2016 in [facility] at that time the surgeon felt that he was able to remove all. * has discussion with 2 oncologists about chemotherapy post surgery and they felt with his age and physical comorbidities he was not a good candidate and will not be able to tolerate it. 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 (5) HTN (hypertension) Status: Chronic (6) Glaucoma Status: Chronic (7) BPH (benign prostatic hyperplasia) Status: Chronic (8) Renal vein thrombosis Status: Chronic Problem Text: had left renal vein thrombosis extending upto the IVC in may 2016 (9) Hyperlipidemia Status: Chronic (10) CVA (cerebral vascular accident) Onset Date: 10/14/2014 Status: Resolved Plan/VTE VTE Prophylaxis Ordered?: Yes VTE Exclusion Pharmacological: Other (Elevated INR) Plan Advance Directives: DNR VS, I&O, 24H, Fishbone Vital Signs/I&O Vital Signs Date Time Temp Pulse Resp B/P Pulse Ox O2 Delivery O2 Flow Rate FiO2 01/20/17 06:00 100.2 101 16 108/55 95 Room Air I&O- Last 24 Hours up to 6 AM 01/20/17 06:00 Intake Total 1590 ml Output Total 0 ml Balance 1590 ml Laboratory Data 24H LABS Laboratory Tests 2 01/20/17 06:19: Blood Urea Nitrogen 24H, Creatinine 1.52H, Sodium Level 132L, Potassium Level 4.8, Chloride Level 99, Carbon Dioxide Level 24, Calcium Level 7.6L, Aspartate Amino Transf (AST/SGOT) 149H, Alanine Aminotransferase (ALT/SGPT) 86H, Alkaline Phosphatase 159H, Total Bilirubin 0.5, Total Protein 4.8L, Albumin 1.4L, Albumin /Globulin Ratio 0.41L, Anion Gap 9, Glomerular Filtration Rate 47.5, Prothromb Time International Ratio 1.52, Prothrombin Time 18.4H CBC/BMP Laboratory Tests 01/20/17 06:19 Calcium Level 7.6 L, Aspartate Amino Transf (AST/SGOT) 149 H, Alanine Aminotransferase (ALT/SGPT) 86 H, Alkaline Phosphatase 159 H, Total Bilirubin 0.5, Total Protein 4.8 L, Albumin 1.4 L, Red Blood Count 3.28 L, Mean Corpuscular Volume 80.7, Mean Corpuscular Hemoglobin 25.5 L, Mean Corpuscular Hemoglobin Concent 31.6 L, Red Cell Distribution Width 15.9 H Microbiology Microbiology 01/14/17 Blood Culture - Final, Complete NO GROWTH AFTER 5 DAYS 01/14/17 Blood Culture - Final, Complete NO GROWTH AFTER 5 DAYS 01/18/17 Acid Fast Stain, Received Pending 01/18/17 Mycobacterial Culture, Received Pending 01/18/17 Fungal Smear, Received Pending 01/18/17 Fungal Culture, Received Pending 01/18/17 Gram Stain - Final, Complete 01/18/17 Body Fluid Culture - Final, Complete 01/18/17 Anaerobic Culture - Final, Complete 01/16/17 Gastrointestinal Tract Panel (PCR) - Final, Complete IRMA DYER DO Jan 20, 2017 16:22
[2017-01-20] MEDS: MIRTAZAPINE 15 MG TAB PO SCH (19:46)
[2017-01-20] MEDS: BENZONATATE 100 MG CAP PO PRN (19:46)
[2017-01-20] MEDS: ASCORBIC ACID 250 MG TAB PO SCH (19:47)
[2017-01-20] MEDS: PRAVASTATIN 20 MG TAB PO SCH (19:47)
[2017-01-20] MEDS: LATANOPROST 0.005% OPHTH SOLN 2.5 ML OU SCH (19:47)
[2017-01-20 22:00] VITALS: BP 114/67
[2017-01-21] MEDS: PIPERACILLIN/TAZOBACTAM SOD 3.375 GM in D5W MINI-BAG PLUS 50 ML IV SCH ×4 (04:08→22:57)
[2017-01-21] MEDS: METOCLOPRAMIDE INJ 10MG/2ML VIAL (J2765) IV SCH ×3 (04:08→19:04)
[2017-01-21] MEDS: LOPERAMIDE 2 MG CAP PO PRN ×2 (04:08→20:56)
[2017-01-21 06:00] VITALS: BP 113/60
[2017-01-21 07:05] LABS: MEAN CORPUSCULAR HEMOGLOBIN 25.3 pg (27.0-33.0); MEAN CORPUSCULAR HGB CONC 31.5 g/dl (32.0-36.5); MEAN CORPUSCULAR VOLUME 80.3 fl (80.0-96.0); RED CELL DISTRIBUTION WIDTH 16.2 % (11.5-14.5); WHITE BLOOD COUNT 10.4 K/mm3 (4.0-10.0)
[2017-01-21 07:07] LABS: INR 1.65
[2017-01-21 07:28] LABS: ALBUMIN 1.4 GM/DL (3.2-5.2); ALBUMIN/GLOBULIN RATIO 0.31 (1.00-1.93); BILIRUBIN,TOTAL 0.4 MG/DL (0.2-1.0); CALCIUM LEVEL 8.2 MG/DL (8.8-10.2); CREATININE FOR GFR 2.05 MG/DL (0.70-1.30); GLOMERULAR FILTRATION RATE 33.6 (>42); POTASSIUM SERUM 4.1 MEQ/L (3.5-5.1); TOTAL PROTEIN 5.9 GM/DL (6.4-8.2)
[2017-01-21] MEDS: ONDANSETRON 4MG/2ML VIAL (J2405) IV PRN ×2 (08:39→17:37)
[2017-01-21] MEDS: MULTIVITAMINS/MINERALS THERAP 1 TAB PO SCH (08:39)
[2017-01-21] MEDS: PANTOPRAZOLE 40MG INJ (PROTONIX) (C9113) IV SCH (12:20)
[2017-01-21 14:00] VITALS: BP 142/63
--- NOTE | 2017-01-21 15:18 | IPNPDOC ---
Subjective Date Seen The patient was seen on 01/21/17. Subjective Chief Complaint/HPI The patient is a 76-year-old male admitted with a reason for visit of Ascites. Constitutional: Denies: Chills, Fever, Night Sweats Gastrointestinal: Reports: Diarrhea Objective Physical Examination General Exam: Positive: Alert, Cooperative, No Acute Distress ENT Exam: Positive: Atraumatic, Mucous membr. 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 (3) History of renal cell cancer Status: Chronic Problem Text: * s/p left radical nephrectomy in sep 2016 in [facility] at that time the surgeon felt that he was able to remove all. * has discussion with 2 oncologists about chemotherapy post surgery and they felt with his age and physical comorbidities he was not a good candidate and will not be able to tolerate it. 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 (5) HTN (hypertension) Status: Chronic (6) Glaucoma Status: Chronic (7) BPH (benign prostatic hyperplasia) Status: Chronic (8) Renal vein thrombosis Status: Chronic Problem Text: had left renal vein thrombosis extending upto the IVC in may 2016 (9) Hyperlipidemia Status: Chronic (10) CVA (cerebral vascular accident) Onset Date: 10/14/2014 Status: Resolved Plan/VTE VTE Prophylaxis Ordered?: Yes VTE Exclusion Pharmacological: Other (Elevated INR) Plan Advance Directives: DNR VS, I&O, 24H, Fishbone Vital Signs/I&O Vital Signs Date Time Temp Pulse Resp B/P Pulse Ox O2 Delivery O2 Flow Rate FiO2 01/21/17 14:00 99.3 86 17 142/63 99 Room Air I&O- Last 24 Hours up to 6 AM 01/21/17 06:00 Intake Total 1880 ml Balance 1880 ml Laboratory Data 24H LABS Laboratory Tests 2 01/21/17 06:19: Blood Urea Nitrogen 31H, Creatinine 2.05H, Sodium Level 132L, Potassium Level 4.1, Chloride Level 98, Carbon Dioxide Level 27, Calcium Level 8.2L, Aspartate Amino Transf (AST/SGOT) 149H, Alanine Aminotransferase (ALT/SGPT) 92H, Alkaline Phosphatase 157H, Total Bilirubin 0.4, Total Protein 5.9#L, Albumin 1.4L, Albumin/Globulin Ratio 0.31L, Anion Gap 7L, Glomerular Filtration Rate 33.6L, Prothromb Time International Ratio 1.65, Prothrombin Time 19.6H CBC/BMP Laboratory Tests 01/21/17 06:19 Calcium Level 8.2 L, Aspartate Amino Transf (AST/SGOT) 149 H, Alanine Aminotransferase (ALT/SGPT) 92 H, Alkaline Phosphatase 157 H, Total Bilirubin 0.4, Total Protein 5.9 #L, Albumin 1.4 L, Red Blood Count 3.16 L, Mean Corpuscular Volume 80.3, Mean Corpuscular Hemoglobin 25.3 L, Mean Corpuscular Hemoglobin Concent 31.5 L, Red Cell Distribution Width 16.2 H Microbiology Microbiology 01/14/17 Blood Culture - Final, Complete NO GROWTH AFTER 5 DAYS 01/14/17 Blood Culture - Final, Complete NO GROWTH AFTER 5 DAYS 01/18/17 Acid Fast Stain, Received Pending 01/18/17 Mycobacterial Culture, Received Pending 01/18/17 Fungal Smear, Received Pending 01/18/17 Fungal Culture, Received Pending 01/18/17 Gram Stain - Final, Complete 01/18/17 Body Fluid Culture - Final, Complete 01/18/17 Anaerobic Culture - Final, Complete 01/16/17 Gastrointestinal Tract Panel (PCR) - Final, Complete IRMA DYER DO Jan 21, 2017 15:17
--- NOTE | 2017-01-21 18:19 | REP ---
ULTRASOUND GUIDED PARACENTESIS AND OMENTAL BIOPSY: The procedure was performed under the direct supervision of Dr. Parker. The risks and benefits of the procedure were explained to the patient and informed consent was obtained. The largest pocket of fluid was localized in the left lower quadrant using ultrasound guidance. The skin was prepped and draped in a sterile fashion. 1% Lidocaine was used as a local anesthetic. Using ultrasound guidance an 8-Chilean [id number] catheter was inserted using trocar technique. 2100 mL of red colored fluid was withdrawn and sent to the lab. A section of omentum was localized using ultrasound guidance. The skin was prepped and draped in a sterile fashion. 1% Lidocaine was used as a local anesthetic. Using ultrasound guidance a 19/20-gauge coaxial needle biopsy needle system was inserted and advanced into the omentum. 5 core biopsy samples were obtained and sent to the lab. Reviewed by KAREY Hawkins 01/24/2017 06:52 PEdited and Signed by Bunny Parker MD 01/27/2017 09:51 A
[2017-01-21] MEDS: ASCORBIC ACID 250 MG TAB PO SCH (20:56)
[2017-01-21] MEDS: LATANOPROST 0.005% OPHTH SOLN 2.5 ML OU SCH (20:56)
[2017-01-21] MEDS: MIRTAZAPINE 15 MG TAB PO SCH (20:56)
[2017-01-21] MEDS: PRAVASTATIN 20 MG TAB PO SCH (20:56)
[2017-01-21] MEDS: BENZONATATE 100 MG CAP PO PRN (20:56)
[2017-01-21 22:00] VITALS: BP 111/55
[2017-01-22] MEDS: LOPERAMIDE 2 MG CAP PO PRN ×2 (04:09→18:15)
[2017-01-22] MEDS: METOCLOPRAMIDE INJ 10MG/2ML VIAL (J2765) IV SCH ×3 (04:09→18:12)
[2017-01-22] MEDS: PIPERACILLIN/TAZOBACTAM SOD 3.375 GM in D5W MINI-BAG PLUS 50 ML IV SCH (04:10)
[2017-01-22 06:00] VITALS: BP 105/60
[2017-01-22] MEDS: MULTIVITAMINS/MINERALS THERAP 1 TAB PO SCH (09:46)
[2017-01-22 11:05] LABS: BASO % 0.3 % (0.0-1.0); EOS # 0.1 K/mm3 (0.0-0.50); EOS % 1.2 % (0.0-3.0); LARGE UNSTAINED CELL # 0.2 K/mm3 (0.0-0.4); LARGE UNSTAINED CELL % 1.8 % (0.0-4.0); LYMPH # 0.7 K/mm3 (1.5-4.5); LYMPH % 5.5 % (24.0-44.0); MEAN CORPUSCULAR HEMOGLOBIN 24.8 pg (27.0-33.0); MEAN CORPUSCULAR HGB CONC 29.5 g/dl (32.0-36.5); MEAN CORPUSCULAR VOLUME 84.2 fl (80.0-96.0); MONO # 0.9 K/mm3 (0.0-0.8); MONO % 8.9 % (0.0-5.0); NEUTROPHILS # 8.2 K/mm3 (1.8-7.7); NEUTROPHILS % 82.2 % (36.0-66.0); PLATELET COUNT, AUTOMATED 640 k/mm3 (150-450); RED CELL DISTRIBUTION WIDTH 16.3 % (11.5-14.5)
[2017-01-22] MEDS: NS 1,000 ML IV SCH ×2 (11:08→20:46)
[2017-01-22] MEDS: PANTOPRAZOLE 40MG INJ (PROTONIX) (C9113) IV SCH (11:08)
[2017-01-22 11:21] LABS: ALBUMIN 1.5 GM/DL (3.2-5.2); ALBUMIN/GLOBULIN RATIO 0.38 (1.00-1.93); BILIRUBIN,TOTAL 0.3 MG/DL (0.2-1.0); CREATININE FOR GFR 2.11 MG/DL (0.70-1.30); GLOMERULAR FILTRATION RATE 32.5 (>42); POTASSIUM SERUM 4.4 MEQ/L (3.5-5.1); TOTAL PROTEIN 5.5 GM/DL (6.4-8.2)
[2017-01-22 14:00] VITALS: BP 108/56
--- NOTE | 2017-01-22 14:52 | IPNPDOC ---
Subjective Date Seen The patient was seen on 01/22/17. Subjective Chief Complaint/HPI The patient is a 76-year-old male admitted with a reason for visit of Ascites. Objective Physical Examination General Exam: Positive: Alert, Cooperative, No Acute Distress ENT Exam: Positive: Atraumatic, Mucous membr. 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 (3) History of renal cell cancer Status: Chronic Problem Text: * s/p left radical nephrectomy in sep 2016 in [facility] at that time the surgeon felt that he was able to remove all. * has discussion with 2 oncologists about chemotherapy post surgery and they felt with his age and physical comorbidities he was not a good candidate and will not be able to tolerate it. 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 in july 2016. (5) HTN (hypertension) Status: Chronic (6) Glaucoma Status: Chronic (7) BPH (benign prostatic hyperplasia) Status: Chronic (8) Renal vein thrombosis Status: Chronic Problem Text: had left renal vein thrombosis extending upto the IVC in may 2016 (9) Hyperlipidemia Status: Chronic (10) CVA (cerebral vascular accident) Onset Date: 10/14/2014 Status: Resolved Plan/VTE VTE Prophylaxis Ordered?: Yes VTE Exclusion Pharmacological: Other (Elevated INR) Plan Advance Directives: DNR VS, I&O, 24H, [facility] Vital Signs/I&O Vital Signs Date Time Temp Pulse Resp B/P Pulse Ox O2 Delivery O2 Flow Rate FiO2 01/22/17 06:00 98.8 97 16 105/60 96 Room Air I&O- Last 24 Hours up to 6 AM 01/22/17 06:00 Intake Total 1230 ml Balance 1230 ml Laboratory Data 24H LABS Laboratory Tests 2 01/22/17 10:43: Blood Urea Nitrogen 33H, Creatinine 2.11H, Sodium Level 135L, Potassium Level 4.4, Chloride Level 100, Carbon Dioxide Level 24, Calcium Level 8.0L, Aspartate Amino Transf (AST/SGOT) 150H, Alanine Aminotransferase (ALT/SGPT) 92H, Alkaline Phosphatase 179H, Total Bilirubin 0.3, Total Protein 5.5L, Albumin 1.5L, Albumin /Globulin Ratio 0.38L, Anion Gap 11, White Blood Count 10.0, Red Blood Count 3.57L, Hemoglobin 8.9L, Hematocrit 30.1L, Mean Corpuscular Volume 84.2, Mean Corpuscular Hemoglobin 24.8L, Mean Corpuscular Hemoglobin Concent 29.5L, Red Cell Distribution Width 16.3H, Platelet Count 640H, Neutrophils (%) (Auto) 82.2H , Lymphocytes (%) (Auto) 5.5L, Monocytes (%) (Auto) 8.9H, Eosinophils (%) (Auto ) 1.2, Basophils (%) (Auto) 0.3, Neutrophils # (Auto) 8.2H, Lymphocytes # (Auto ) 0.7L, Monocytes # (Auto) 0.9H, Eosinophils # (Auto) 0.1, Basophils # (Auto) 0.0, Glomerular Filtration Rate 32.5L, Large Unclassified Cells # 0.2, Large Unclassified Cells % 1.8 01/22/17 13:43: Urine Amorphous Sediment SMALLH, Urine Appearance CLOUDYH, Urine Color CHANCE, Urine pH 5.0, Urine Specific [place] 1.021, Urine Protein 2+H, Urine Glucose (UA ) NEGATIVE, Urine Ketones NEGATIVE, Urine Urobilinogen 0.2, Urine Bilirubin NEGATIVE, Urine Leukocyte Esterase 1+H, Urine Bacteria (Auto) 1+H, Urine Blood 3 +H, Urine Calcium Carbonate Cryst(Auto) , Urine Calcium Oxalate Cryst (Auto) , Urine Calcium Phosphate [place] (Auto) , Urine Cellular Casts , Urine Cystine Crystals , Urine Granular Casts (Auto) , Urine Hyaline Casts (Auto) 0, Urine Leucine Crystals , Urine Mucus (Auto) , Urine Nitrite NEGATIVE, Urine Oval Fat Bodies (Auto) , Urine RBC (Auto) TNTCH, Urine Renal Epithelial Cells , Urine Sperm (Auto) , Urine Squamous Epithelial Cells 0, Urine Transitional Epithelial Cells , Urine Trichomonas (Auto) , Urine Triple Phosphate Cryst (Auto) , Urine Tyrosine Crystals , Urine Uric Acid Crystals (Auto) , Urine WBC (Auto) 13H, Urine Waxy Casts (Auto) , Urine Yeast-Like Cells (Auto) CBC/BMP Laboratory Tests 01/22/17 10:43 Calcium Level 8.0 L, Aspartate Amino Transf (AST/SGOT) 150 H, Alanine Aminotransferase (ALT/SGPT) 92 H, Alkaline Phosphatase 179 H, Total Bilirubin 0.3, Total Protein 5.5 L, Albumin 1.5 L, Red Blood Count 3.57 L, Mean Corpuscular Volume 84.2, Mean Corpuscular Hemoglobin 24.8 L, Mean Corpuscular Hemoglobin Concent 29.5 L, Red Cell Distribution Width 16.3 H, Neutrophils (%) ( Auto) 82.2 H, Lymphocytes (%) (Auto) 5.5 L, Monocytes (%) (Auto) 8.9 H, Eosinophils (%) (Auto) 1.2, Basophils (%) (Auto) 0.3, Neutrophils # (Auto) 8.2 H , Lymphocytes # (Auto) 0.7 L, Monocytes # (Auto) 0.9 H, Eosinophils # (Auto) 0.1 , Basophils # (Auto) 0.0 Microbiology Microbiology 01/14/17 Blood Culture - Final, Complete NO GROWTH AFTER 5 DAYS 01/14/17 Blood Culture - Final, Complete NO GROWTH AFTER 5 DAYS 01/18/17 Acid Fast Stain, Received Pending 01/18/17 Mycobacterial Culture, Received Pending 01/18/17 Fungal Smear, Received Pending 01/18/17 Fungal Culture, Received Pending 01/18/17 Gram Stain - Final, Complete 01/18/17 Body Fluid Culture - Final, Complete 01/18/17 Anaerobic Culture - Final, Complete 01/16/17 Gastrointestinal Tract Panel (PCR) - Final, Complete 01/22/17 Urine Culture, Received Pending IRMA DYER DO Jan 22, 2017 14:52
[2017-01-22] MEDS: PRAVASTATIN 20 MG TAB PO SCH (20:45)
[2017-01-22] MEDS: ASCORBIC ACID 250 MG TAB PO SCH (20:45)
[2017-01-22] MEDS: MIRTAZAPINE 15 MG TAB PO SCH (20:45)
[2017-01-22] MEDS: LATANOPROST 0.005% OPHTH SOLN 2.5 ML OU SCH (20:46)
[2017-01-22] MEDS: ONDANSETRON 4MG/2ML VIAL (J2405) IV PRN (20:46)
[2017-01-22 22:00] VITALS: BP 106/58
[2017-01-23] MEDS: METOCLOPRAMIDE INJ 10MG/2ML VIAL (J2765) IV SCH ×3 (03:09→18:26)
[2017-01-23 06:00] VITALS: BP 93/48
[2017-01-23 08:10] LABS: BASO % 0.2 % (0.0-1.0); EOS # 0.1 K/mm3 (0.0-0.50); EOS % 1.1 % (0.0-3.0); LARGE UNSTAINED CELL # 0.2 K/mm3 (0.0-0.4); LARGE UNSTAINED CELL % 1.8 % (0.0-4.0); LYMPH # 0.8 K/mm3 (1.5-4.5); LYMPH % 5.8 % (24.0-44.0); MEAN CORPUSCULAR HEMOGLOBIN 24.9 pg (27.0-33.0); MEAN CORPUSCULAR HGB CONC 30.2 g/dl (32.0-36.5); MEAN CORPUSCULAR VOLUME 82.6 fl (80.0-96.0); MONO # 0.9 K/mm3 (0.0-0.8); MONO % 8.6 % (0.0-5.0); NEUTROPHILS # 8.4 K/mm3 (1.8-7.7); NEUTROPHILS % 82.6 % (36.0-66.0); RED CELL DISTRIBUTION WIDTH 16.4 % (11.5-14.5); WHITE BLOOD COUNT 10.2 K/mm3 (4.0-10.0)
[2017-01-23 08:21] LABS: PLATELET COUNT, AUTOMATED 523 k/mm3 (150-450)
[2017-01-23 08:31] LABS: ALBUMIN 1.3 GM/DL (3.2-5.2); ALBUMIN/GLOBULIN RATIO 0.39 (1.00-1.93); BILIRUBIN,TOTAL 0.3 MG/DL (0.2-1.0); CALCIUM LEVEL 7.4 MG/DL (8.8-10.2); CREATININE FOR GFR 1.57 MG/DL (0.70-1.30); GLOMERULAR FILTRATION RATE 45.7 (>42); POTASSIUM SERUM 4.3 MEQ/L (3.5-5.1); TOTAL PROTEIN 4.6 GM/DL (6.4-8.2)
[2017-01-23] MEDS: MULTIVITAMINS/MINERALS THERAP 1 TAB PO SCH (10:47)
[2017-01-23] MEDS: PANTOPRAZOLE 40MG INJ (PROTONIX) (C9113) IV SCH (10:47)
--- NOTE | 2017-01-23 12:18 | IPNPDOC ---
Subjective Date Seen The patient was seen on 01/23/17. Subjective Chief Complaint/HPI The patient is a 76-year-old male admitted with a reason for visit of Ascites. Events since last encounter pt seen and examined, no overnight complains Objective Physical Examination General Exam: Positive: Alert, Cooperative, No Acute Distress ENT Exam: Positive: Atraumatic, Mucous membr. moist/pink Neck Exam: Negative: JVD Chest Exam: Positive: Diminished, Negative: Rales, Wheezing Heart Exam: Positive: Normal S1, Normal S2, Rate Normal Abdomen Exam: Positive: BS Hypoactive, Other (abdomen noted to be distended, positive for fluid wave), Tenderness Extremity Exam: Negative: Swelling, Tenderness Assessment /Plan Problems (1) Ascites Status: Acute Problem Text: * as per CT looks like malignant ascites * paracentesis 01/18/17 and on 01/21 * path negative for malignancy * I spoke with patient and family and they are aware that this is likely due to metastatic disease * omental biopsy pending * pt spoke with hospice they want to go to hospice house * pfs is aware (2) Warfarin-induced coagulopathy Status: Resolved Problem Text: * no signs of bleeding. (3) History of renal cell cancer Status: Chronic Problem Text: * s/p left radical nephrectomy in sep 2016 in [facility] at that time the surgeon felt that he was able to remove all. * has discussion with 2 oncologists about chemotherapy post surgery and they felt with his age and physical comorbidities he was not a good candidate and will not be able to tolerate it. 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 (5) HTN (hypertension) Status: Chronic (6) Glaucoma Status: Chronic (7) BPH (benign prostatic hyperplasia) Status: Chronic (8) Renal vein thrombosis Status: Chronic Problem Text: had left renal vein thrombosis extending upto the IVC in may 2016 (9) Hyperlipidemia Status: Chronic (10) CVA (cerebral vascular accident) Onset Date: 10/14/2014 Status: Resolved Plan/VTE VTE Prophylaxis Ordered?: Yes VTE Exclusion Pharmacological: Other (Elevated INR) Plan Advance Directives: DNR VS, I&O, 24H, Fishbone Vital Signs/I&O Vital Signs Date Time Temp Pulse Resp B/P Pulse Ox O2 Delivery O2 Flow Rate FiO2 4/2/17 06:00 99.0 92 14 93/48 97 Room Air I&O- Last 24 Hours up to 6 AM 01/23/17 06:00 Intake Total 2770 ml Balance 2770 ml Laboratory Data 24H LABS Laboratory Tests 2 01/22/17 13:43: Urine Amorphous Sediment SMALLH, Urine Appearance CLOUDYH, Urine Color CHANCE, Urine pH 5.0, Urine Specific [place] 1.021, Urine Protein 2+H, Urine Glucose (UA ) NEGATIVE, Urine Ketones NEGATIVE, Urine Urobilinogen 0.2, Urine Bilirubin NEGATIVE, Urine Leukocyte Esterase 1+H, Urine Bacteria (Auto) 1+H, Urine Blood 3 +H, Urine Calcium Carbonate Cryst(Auto) , Urine Calcium Oxalate Cryst (Auto) , Urine Calcium Phosphate Merary (Auto) , Urine Cellular Casts , Urine Cystine Crystals , Urine Granular Casts (Auto) , Urine Hyaline Casts (Auto) 0, Urine Leucine Crystals , Urine Mucus (Auto) , Urine Nitrite NEGATIVE, Urine Oval Fat Bodies (Auto) , Urine RBC (Auto) TNTCH, Urine Renal Epithelial Cells , Urine Sperm (Auto) , Urine Squamous Epithelial Cells 0, Urine Transitional Epithelial Cells , Urine Trichomonas (Auto) , Urine Triple Phosphate Cryst (Auto) , Urine Tyrosine Crystals , Urine Uric Acid Crystals (Auto) , Urine WBC (Auto) 13H, Urine Waxy Casts (Auto) , Urine Yeast-Like Cells (Auto) 01/23/17 07:47: Blood Urea Nitrogen 25H, Creatinine 1.57H, Sodium Level 136, Potassium Level 4.3 , Chloride Level 104, Carbon Dioxide Level 23, Calcium Level 7.4L, Aspartate Amino Transf (AST/SGOT) 132H, Alanine Aminotransferase (ALT/SGPT) 87H, Alkaline Phosphatase 151H, Total Bilirubin 0.3, Total Protein 4.6L, Albumin 1.3L, Albumin /Globulin Ratio 0.39L, Anion Gap 9, White Blood Count 10.2H, Red Blood Count 3.12L, Hemoglobin 7.8L, Hematocrit 25.8L, Mean Corpuscular Volume 82.6, Mean Corpuscular Hemoglobin 24.9L, Mean Corpuscular Hemoglobin Concent 30.2L, Red Cell Distribution Width 16.4H, Platelet Count 523#H, Neutrophils (%) (Auto) 82.6H, Lymphocytes (%) (Auto) 5.8L, Monocytes (%) (Auto) 8.6H, Eosinophils (%) ( Auto) 1.1, Basophils (%) (Auto) 0.2, Neutrophils # (Auto) 8.4H, Lymphocytes # ( Auto) 0.8L, Monocytes # (Auto) 0.9H, Eosinophils # (Auto) 0.1, Basophils # (Auto ) 0.0, Glomerular Filtration Rate 45.7, Large Unclassified Cells # 0.2, Large Unclassified Cells % 1.8 CBC/BMP Laboratory Tests 01/23/17 07:47 Calcium Level 7.4 L, Aspartate Amino Transf (AST/SGOT) 132 H, Alanine Aminotransferase (ALT/SGPT) 87 H, Alkaline Phosphatase 151 H, Total Bilirubin 0.3, Total Protein 4.6 L, Albumin 1.3 L, Red Blood Count 3.12 L, Mean Corpuscular Volume 82.6, Mean Corpuscular Hemoglobin 24.9 L, Mean Corpuscular Hemoglobin Concent 30.2 L, Red Cell Distribution Width 16.4 H, Neutrophils (%) ( Auto) 82.6 H, Lymphocytes (%) (Auto) 5.8 L, Monocytes (%) (Auto) 8.6 H, Eosinophils (%) (Auto) 1.1, Basophils (%) (Auto) 0.2, Neutrophils # (Auto) 8.4 H , Lymphocytes # (Auto) 0.8 L, Monocytes # (Auto) 0.9 H, Eosinophils # (Auto) 0.1 , Basophils # (Auto) 0.0 Microbiology Microbiology 01/14/17 Blood Culture - Final, Complete NO GROWTH AFTER 5 DAYS 01/14/17 Blood Culture - Final, Complete NO GROWTH AFTER 5 DAYS 01/18/17 Acid Fast Stain, Received Pending 01/18/17 Mycobacterial Culture, Received Pending 01/18/17 Fungal Smear, Received Pending 01/18/17 Fungal Culture, Received Pending 01/18/17 Gram Stain - Final, Complete 01/18/17 Body Fluid Culture - Final, Complete 01/18/17 Anaerobic Culture - Final, Complete 01/16/17 Gastrointestinal Tract Panel (PCR) - Final, Complete 01/22/17 Urine Culture - Final, Complete IRMA DYER DO Jan 23, 2017 12:18
[2017-01-23 14:00] VITALS: BP 110/59
[2017-01-23] MEDS: NS 1,000 ML IV SCH (14:37)
[2017-01-23] MEDS: BENZONATATE 100 MG CAP PO PRN (19:15)
[2017-01-23] MEDS: MIRTAZAPINE 15 MG TAB PO SCH (20:52)
[2017-01-23] MEDS: PRAVASTATIN 20 MG TAB PO SCH (20:52)
[2017-01-23] MEDS: ASCORBIC ACID 250 MG TAB PO SCH (20:52)
[2017-01-23] MEDS: LATANOPROST 0.005% OPHTH SOLN 2.5 ML OU SCH (20:53)
[2017-01-23] MEDS: ONDANSETRON 4MG/2ML VIAL (J2405) IV PRN (20:53)
[2017-01-23 22:00] VITALS: BP 137/60
[2017-01-24] MEDS: NS 1,000 ML IV SCH (03:59)
[2017-01-24] MEDS: METOCLOPRAMIDE INJ 10MG/2ML VIAL (J2765) IV SCH ×3 (03:59→19:45)
[2017-01-24 06:00] VITALS: BP 103/57
[2017-01-24] MEDS: LOPERAMIDE 2 MG CAP PO PRN ×2 (09:15→21:39)
[2017-01-24] MEDS: MULTIVITAMINS/MINERALS THERAP 1 TAB PO SCH (09:15)
[2017-01-24] MEDS: ONDANSETRON 4MG/2ML VIAL (J2405) IV PRN ×2 (09:15→17:29)
[2017-01-24] MEDS: BENZONATATE 100 MG CAP PO PRN ×2 (09:16→17:29)
[2017-01-24 09:39] LABS: BASO % 0.2 % (0.0-1.0); EOS # 0.1 K/mm3 (0.0-0.50); EOS % 1.3 % (0.0-3.0); LARGE UNSTAINED CELL # 0.2 K/mm3 (0.0-0.4); LARGE UNSTAINED CELL % 1.6 % (0.0-4.0); LYMPH # 0.7 K/mm3 (1.5-4.5); LYMPH % 5.3 % (24.0-44.0); MEAN CORPUSCULAR HEMOGLOBIN 24.9 pg (27.0-33.0); MEAN CORPUSCULAR HGB CONC 30.4 g/dl (32.0-36.5); MEAN CORPUSCULAR VOLUME 82.2 fl (80.0-96.0); MONO # 0.9 K/mm3 (0.0-0.8); MONO % 7.9 % (0.0-5.0); NEUTROPHILS % 83.7 % (36.0-66.0); PLATELET COUNT, AUTOMATED 585 k/mm3 (150-450); RED CELL DISTRIBUTION WIDTH 16.3 % (11.5-14.5); WHITE BLOOD COUNT 10.8 K/mm3 (4.0-10.0)
[2017-01-24 10:07] LABS: ALBUMIN 1.4 GM/DL (3.2-5.2); ALKALINE PHOSPHATASE 160 U/L (45-117); ALT/SGPT 92 U/L (12-78); ANION GAP 8 MEQ/L (8-16); AST/SGOT 148 U/L (15-37); BILIRUBIN,TOTAL 0.3 MG/DL (0.2-1.0); BLOOD UREA NITROGEN 18 MG/DL (7-18); CALCIUM LEVEL 8.2 MG/DL (8.8-10.2); CARBON DIOXIDE LEVEL 22 MEQ/L (21-32); CHLORIDE LEVEL 105 MEQ/L (98-107); CREATININE FOR GFR 1.15 MG/DL (0.70-1.30); FERRITIN 1724 NG/ML (26-388); GLOMERULAR FILTRATION RATE > 60.0 (>42); GLUCOSE, FASTING 91 MG/DL (83-110); PERCENT SATURATION 9.6 % (19.7-37.4); POTASSIUM SERUM 4.2 MEQ/L (3.5-5.1); SODIUM LEVEL 135 MEQ/L (136-145); TOTAL IRON BINDING CAPACITY 197 UG/DL (250-450)
[2017-01-24 10:56] LABS: FOLATE 12.3 NG/ML (>5.4); VITAMIN B12 LEVEL 1719 PG/ML (247-911)
[2017-01-24] MEDS: PANTOPRAZOLE 40MG INJ (PROTONIX) (C9113) IV SCH (11:25)
[2017-01-24 14:00] VITALS: BP 134/81
[2017-01-24] MEDS: AMINO AC/ELECTROLYTE/DEX/CALC 1,000 ML IV SCH (17:29)
[2017-01-24] MEDS ORDERED: FAT EMULSION IV 20% 500 ML IV SCH (18:00)
--- NOTE | 2017-01-24 19:12 | IPNPDOC ---
Subjective Date Seen The patient was seen on 01/24/17. Subjective Chief Complaint/HPI The patient is a 76-year-old male admitted with a reason for visit of Ascites. Constitutional: Denies: Chills, Fever, Night Sweats Pulmonary: Reports: Cough Gastrointestinal: Reports: Abdominal Pain, Diarrhea, Nausea Objective Physical Examination General Exam: Positive: Alert, Cooperative, No Acute Distress ENT Exam: Positive: Atraumatic, Mucous membr. moist/pink Neck Exam: Negative: JVD Chest Exam: Positive: Diminished, Negative: Rales, Wheezing Heart Exam: Positive: Normal S1, Normal S2, Rate Normal Abdomen Exam: Positive: BS Hypoactive, Other (abdomen noted to be distended, positive for fluid wave), Tenderness Extremity Exam: Negative: Swelling, Tenderness Assessment /Plan Problems (1) Ascites Status: Acute Problem Text: * as per CT looks like malignant ascites * paracentesis 01/18/17 and on 01/21 * path negative for malignancy from paracentesis * I spoke with patient and family and they are aware that this is likely due to metastatic disease * omental biopsy pending * pt spoke with hospice they want to go to hospice house if biopsy is positive for malignancy * Spoke with Dr Matthews in [place], his urologist, who did resection of Left kidney and ureteral repair, he wants to wait until biopsy result returns before pt makes a decision regarding hospise, he requested that we notify him with the path results in am, his cell number is * he also recommended to obtain [employer] level from paracentesis fluid if/when pt gets another paracentesis to rule out possible ureteral leak since pt underwent ureteral repair * pfs is aware (2) Warfarin-induced coagulopathy Status: Resolved Problem Text: * no signs of bleeding. * Coumadin is on hold (3) History of renal cell cancer Status: Chronic Problem Text: * s/p left radical nephrectomy in sep 2016 in [facility] at that time the surgeon felt that he was able to remove all. * has discussion with 2 oncologists about chemotherapy post surgery and they felt with his age and physical comorbidities he was not a good candidate and will not be able to tolerate it. * this ascites is likely secondary malignancy (4) Thoracic aortic aneurysm Status: Chronic Problem Text: s/p repair at [facility] in july 2016. (5) HTN (hypertension) Status: Chronic (6) Glaucoma Status: Chronic (7) BPH (benign prostatic hyperplasia) Status: Chronic (8) Renal vein thrombosis Status: Chronic Problem Text: had left renal vein thrombosis extending upto the IVC in may 2016 (9) Hyperlipidemia Status: Chronic (10) CVA (cerebral vascular accident) Onset Date: 10/14/2014 Status: Resolved Plan/VTE VTE Prophylaxis Ordered?: Yes VTE Exclusion Pharmacological: Other (Elevated INR) Plan Advance Directives: DNR VS, I&O, 24H, Fishbone Vital Signs/I&O Vital Signs Date Time Temp Pulse Resp B/P Pulse Ox O2 Delivery O2 Flow Rate FiO2 01/24/17 14:00 98.8 102 16 134/81 98 Room Air I&O- Last 24 Hours up to 6 AM 01/24/17 06:00 Intake Total 1980 ml Balance 1980 ml Laboratory Data 24H LABS Laboratory Tests 2 01/24/17 09:02: Blood Urea Nitrogen 18, Creatinine 1.15, Sodium Level 135L, Potassium Level 4.2 , Chloride Level 105, Carbon Dioxide Level 22, Calcium Level 8.2L, Aspartate Amino Transf (AST/SGOT) 148H, Alanine Aminotransferase (ALT/SGPT) 92H, Alkaline Phosphatase 160H, Total Bilirubin 0.3, Total Protein 6.0#L, Albumin 1.4L, Albumin/Globulin Ratio 0.30L, Anion Gap 8, White Blood Count 10.8H, Red Blood Count 3.46L, Hemoglobin 8.6L, Hematocrit 28.4L, Mean Corpuscular Volume 82.2, Mean Corpuscular Hemoglobin 24.9L, Mean Corpuscular Hemoglobin Concent 30.4L, Red Cell Distribution Width 16.3H, Platelet Count 585H, Neutrophils (%) (Auto) 83.7H, Lymphocytes (%) (Auto) 5.3L, Monocytes (%) (Auto) 7.9H, Eosinophils (%) ( Auto) 1.3, Basophils (%) (Auto) 0.2, Neutrophils # (Auto) 9.0H, Lymphocytes # ( Auto) 0.7L, Monocytes # (Auto) 0.9H, Eosinophils # (Auto) 0.1, Basophils # (Auto ) 0.0, Ferritin 1724H, Folate 12.3, Glomerular Filtration Rate > 60.0, Iron Level 19L, Large Unclassified Cells # 0.2, Large Unclassified Cells % 1.6, Total Iron Binding Capacity 197L, Transferrin % Saturation 9.6L, Vitamin B12 Level 1719H CBC/BMP Laboratory Tests 01/24/17 02:11 01/24/17 09:02 Calcium Level 8.2 L, Aspartate Amino Transf (AST/SGOT) 148 H, Alanine Aminotransferase (ALT/SGPT) 92 H, Alkaline Phosphatase 160 H, Total Bilirubin 0.3, Total Protein 6.0 #L, Albumin 1.4 L, Red Blood Count 3.46 L, Mean Corpuscular Volume 82.2, Mean Corpuscular Hemoglobin 24.9 L, Mean Corpuscular Hemoglobin Concent 30.4 L, Red Cell Distribution Width 16.3 H, Neutrophils (%) ( Auto) 83.7 H, Lymphocytes (%) (Auto) 5.3 L, Monocytes (%) (Auto) 7.9 H, Eosinophils (%) (Auto) 1.3, Basophils (%) (Auto) 0.2, Neutrophils # (Auto) 9.0 H , Lymphocytes # (Auto) 0.7 L, Monocytes # (Auto) 0.9 H, Eosinophils # (Auto) 0.1 , Basophils # (Auto) 0.0 Microbiology Microbiology 01/14/17 Blood Culture - Final, Complete NO GROWTH AFTER 5 DAYS 01/14/17 Blood Culture - Final, Complete NO GROWTH AFTER 5 DAYS 01/18/17 Acid Fast Stain, Received Pending 01/18/17 Mycobacterial Culture, Received Pending 01/18/17 Fungal Smear, Received Pending 01/18/17 Fungal Culture, Received Pending 01/18/17 Gram Stain - Final, Complete 01/18/17 Body Fluid Culture - Final, Complete 01/18/17 Anaerobic Culture - Final, Complete 01/23/17 Stool Occult Blood (MAXIMO) - Final, Complete 01/16/17 Gastrointestinal Tract Panel (PCR) - Final, Complete 01/22/17 Urine Culture - Final, Complete IRMA DYER DO Jan 24, 2017 19:12
[2017-01-24] MEDS: LATANOPROST 0.005% OPHTH SOLN 2.5 ML OU SCH (21:39)
[2017-01-24] MEDS: ASCORBIC ACID 250 MG TAB PO SCH (21:39)
[2017-01-24] MEDS: PRAVASTATIN 20 MG TAB PO SCH (21:39)
[2017-01-24] MEDS: MIRTAZAPINE 15 MG TAB PO SCH (21:39)
[2017-01-24 22:00] VITALS: BP 126/58
[2017-01-25] MEDS: METOCLOPRAMIDE INJ 10MG/2ML VIAL (J2765) IV SCH ×3 (03:41→20:46)
[2017-01-25 06:00] VITALS: BP 117/58
[2017-01-25] MEDS: ONDANSETRON 4MG/2ML VIAL (J2405) IV PRN (09:19)
[2017-01-25] MEDS: MULTIVITAMINS/MINERALS THERAP 1 TAB PO SCH (09:19)
[2017-01-25] MEDS: BENZONATATE 100 MG CAP PO PRN ×2 (09:19→17:35)
[2017-01-25] MEDS: AMINO AC/ELECTROLYTE/DEX/CALC 1,000 ML IV SCH ×2 (10:25→17:36)
[2017-01-25] MEDS: LOPERAMIDE 2 MG CAP PO PRN ×2 (12:00→17:35)
[2017-01-25] MEDS: PANTOPRAZOLE 40MG INJ (PROTONIX) (C9113) IV SCH (12:00)
[2017-01-25 14:00] VITALS: BP 126/57
--- NOTE | 2017-01-25 14:16 | IPNPDOC ---
Text Note Date of Service The patient was seen on 01/25/17. NOTE Subjective: Patient denies any nausea/vomiting/abdominal pain. Has decreased appetite. Would like to go on hospice. I have spoken with the pathologist who states that the patient has a poorly differentiated metastatic cancer within the omentum biopsy. I have also called the patient's urologist, who supports the patient's decision for palliative care. The patient states he would like to go on hospice at this point. Objective: Vitals: (see below) General: No acute distress, laying comfortably in bed. HEENT: Moist mucous membranes. Neck: No JVD or lymphadenopathy Cardiac: RRR, No murmurs Pulm: Clear to auscultation b/l. No wheezing, rhonchi Abd: NT. distended. Positive bowel sounds. Ext: Trace edema bilateral lower some is. No cyanosis. Labs (see below) Images: Assessment/Plan 1. 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 Final pathology results pending however pathologist notes that it may be GI related. Patient states he would like to go on hospice. I have spoken to Dr. Matthews , the patient's urologist in [place] and have updated him on the results of the pathology. 2. Ascites secondary to #1. Paracentesis 2 on this admission. 3. Coumadin coagulopathy- resolved. No signs of bleeding. Coumadin on hold. 4. History of renal cell carcinoma- status post left nephrectomy in September 2016. 5. Thoracic aortic aneurysm status post repair 6. Hypertension- controlled 7. BPH 8. History of Renal vein thrombosis 9. History of CVA DVT prophy: Dispo: Hospice house VS,[place], I+O VS, [place], I+O Vital Signs Date Time Temp Pulse Resp B/P Pulse Ox O2 Delivery O2 Flow Rate FiO2 01/25/17 09:00 Room Air 01/25/17 06:00 99.2 97 16 117/58 96 I&O- Last 24 Hours up to 6 AM 01/25/17 05:59 Intake Total 2240 ml Balance 2240 ml DYANA CENTENO MD Jan 25, 2017 14:15
[2017-01-25] MEDS ORDERED: FAT EMULSION IV 20% 500 ML IV SCH (18:00)
[2017-01-25] MEDS: MIRTAZAPINE 15 MG TAB PO SCH (20:45)
[2017-01-25] MEDS: PRAVASTATIN 20 MG TAB PO SCH (20:45)
[2017-01-25] MEDS: ASCORBIC ACID 250 MG TAB PO SCH (20:45)
[2017-01-25] MEDS: LATANOPROST 0.005% OPHTH SOLN 2.5 ML OU SCH (20:50)
[2017-01-25] MEDS ORDERED: hydrOXYzine 10 MG TAB PO ONE (21:00)
[2017-01-25 22:00] VITALS: BP 119/63
[2017-01-26] MEDS: METOCLOPRAMIDE INJ 10MG/2ML VIAL (J2765) IV SCH ×2 (03:00→09:51)
[2017-01-26 06:00] VITALS: BP 108/57
[2017-01-26] MEDS: BENZONATATE 100 MG CAP PO PRN (07:01)
[2017-01-26] MEDS: MULTIVITAMINS/MINERALS THERAP 1 TAB PO SCH (09:00)
[2017-01-26] MEDS: PANTOPRAZOLE 40MG INJ (PROTONIX) (C9113) IV SCH (09:51)
[2017-01-26] MEDS ORDERED: ATRO1OPD PO ×2 (11:26→15:24)
[2017-01-26] MEDS ORDERED: LORA1TAB12 PO ×2 (11:26→15:24)
[2017-01-26] MEDS ORDERED: MORP1SOL PO ×2 (11:26→15:24)
--- NOTE | 2017-01-26 15:32 | DS.PDOC ---
Discharge Summary General Date of Admission Jan 14, 2017 at 15:59 Date of Discharge Jan 26, 2017 at 12:10 Attending Physician: DYANA CENTENO MD Discharge Summary PROCEDURES PERFORMED DURING STAY: None. ADMITTING/DISCHARGE DIAGNOSES: 1. 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 Ascites secondary to metastatic adenocarcinoma 3. Coumadin coagulopathy, resolved 4. History of renal cell carcinoma 5. History of thoracic aortic aneurysm repair 6. Hypertension 7. BPH 8. History of renal vein thrombosis 9. History of CVA COMPLICATIONS/CHIEF COMPLAINT: Ascites. HISTORY OF PRESENT ILLNESS/HOSPITAL COURSE: . This is a 76-year-old male past history of CVA, left renal vein thrombosis, aortic aneurysm repair, history of renal cell carcinoma status post nephrectomy who presented to the ER complaining of abdominal distention over the past 1-2 prior to admission. Patient had noticed significant amount of weight gain and abdominal distention. CAT scan of abdomen and pelvis in the ED noted to have marked ascites suspicion of abdominal omental caking. Patient did have paracentesis, which was negative for malignancy. Patient also presents with Coumadin coagulopathy however no acute bleeding. He was given vitamin K and his coagulopathy has resolved. Of note the patient also had biopsy of the omental mass which was positive for malignant adenocarcinoma. The patient and the were very adamant that they would not want to have any aggressive measures done and have sought report manager/ hospice care. The results of the biopsy were discussed with the patient's urologist in [place] who respected the patient's wishes for palliative/hospice care. The patient will now be transferred to hospice house. DISCHARGE MEDICATIONS: Please see below. ALLERGIES: Please see below. PHYSICAL EXAMINATION ON DISCHARGE: VITAL SIGNS: Please see below. General: No acute distress, laying comfortably in bed. HEENT: Moist mucous membranes. Neck: No JVD or lymphadenopathy Cardiac: RRR, No murmurs Pulm: Clear to auscultation b/l. No wheezing, rhonchi Abd: NT. distended. Positive bowel sounds. Ext: Trace edema bilateral lower some is. No cyanosis. LABORATORY DATA: Please see below. IMAGING: CT Abd/pelvis 01/19/17 Impression: Marked ascites along with the irregular thickened omental tissue and possible soft tissue nodularity along the undersurface of the right hemidiaphragm as well as changes to the liver and transverse colon as described above may be related to primary malignancy versus metastatic disease given the patient's history of prior nephrectomy for renal cell carcinoma. Findings detailed above and correlation with paracentesis is recommended. PROGNOSIS: Poor ACTIVITY: As tolerated. DIET: Low-sodium DISCHARGE PLAN: DISPOSITION: 50 [facility]ospice Home. DISCHARGE INSTRUCTIONS: 1. Follow-up with PCP as needed DISCHARGE CONDITION: Stable. TIME SPENT ON DISCHARGE: Greater than 30 minutes. Vital Signs/I&Os Vital Signs Date Time Temp Pulse Resp B/P Pulse Ox O2 Delivery O2 Flow Rate FiO2 01/26/17 09:00 Room Air 01/26/17 06:00 98.8 100 18 108/57 96 I&O- Last 24 Hours up to 6 AM 01/26/17 06:00 Intake Total 1340 ml Balance 1340 ml Laboratory Data Labs 24H Laboratory Tests 2 01/25/17 21:23: Bedside Glucose (Misc Panel) 121H FSBS Laboratory Tests Test 01/25/17 21:23 Range/Units Bedside Glucose (Misc Panel) 121 83-110 MG/DL Microbiology Microbiology 01/18/17 Acid Fast Stain, Received Pending 01/18/17 Mycobacterial Culture, Received Pending 01/18/17 Fungal Smear, Received Pending 01/18/17 Fungal Culture, Received Pending 01/18/17 Gram Stain - Final, Complete 01/18/17 Body Fluid Culture - Final, Complete 01/18/17 Anaerobic Culture - Final, Complete 01/23/17 Stool Occult Blood (MAXIMO) - Final, Complete 01/16/17 Gastrointestinal Tract Panel (PCR) - Final, Complete 01/22/17 Urine Culture - Final, Complete Discharge Medications Scheduled Ascorbic Acid (Ascorbic Acid) 250 Mg Tab 250 MG PO QPM (Reported) DINNERTIME Bimatoprost (Lumigan) 50 Drop/2.5 Ml Krystle 1 DROP OU QHS (Reported) Carboxymethylcellulose Sodium (Refresh Tears) 0.5 % Juan 1 DROP OU BID (Reported ) Cholecalciferol (Vitamin D) 1,000 Unit Tab 1,000 UNIT PO QPM (Reported) DINNERTIME Mirtazapine (Mirtazapine) 15 Mg Tab 15 MG PO QHS (Reported) Multivitamins (Centrum Silver) 1 Tab Tab 1 TAB PO DAILY (Reported) Omeprazole (Omeprazole) 20 Mg Cap 20 MG PO DAILY (Reported) Scheduled PRN (Vicks Dayquil Cold & Flu 10-5-325 mg/15Ml) 1 Liq Liq 1 LIQ PO PRN PRN PRN COUGH /COLD (Reported) (Vicks Nyquil Cold & Flu 15-6.25-325 mg/15Ml) 1 Liq Liq 1 LIQ PO QHS PRN PRN COUGH/COLD (Reported) Atropine Sulfate (Atropine Sulfate) 1 % Krystle 1-2 DROP PO Q2H PRN PRN TERMINAL SECRETIONS Use sublingually if unable to swallow MDD = 36 drops Loperamide Hcl (Imodium A-D) 2 Mg Tab 2 MG PO PRN PRN PRN DIARRHEA (Reported) Lorazepam (Lorazepam) 1 Mg Tab 0.5 TAB PO Q4H PRN PRN ANXIETY/AGITATION Use sublingually if unable to swallow MDD = 3 mg Morphine Sulfate (Morphine Sulfate Concentrate) 10 Mg/0.5 Ml Conc 0.25-1 ML PO Q2H PRN PRN PAIN OR DYSPNEA Use sublingually if unable to swallow MDD = 12 ml Ondansetron HCl (Ondansetron HCl) 4 Mg Tab 4 MG PO TID PRN PRN NAUSEA OR VOMITING (Reported) Allergies Coded Allergies: No Known Drug Allergy (Unverified Allergy, Unknown, 01/24/13) DYANA CENTENO MD Jan 26, 2017 15:32
== END 2017-01-26 12:10 | disposition hospice, home (50) | DRG 375 ==
LOC: M ED 13:00 → M ED INP 15:59 → M MS5PR 17:58
PROVIDERS: ADMIT Internal Medicine; ATTEND Internal Medicine
PROC: 0W9G3ZX Drainage of Peritoneal Cavity, Percutaneous Approach, Diagnostic (ICD-10-PCS; principal; 2017-01-18)
PROC: 0DBS3ZX (ICD-10-PCS; 2017-01-21)
DX: C78.6 Secondary malignant neoplasm of retroperitoneum and peritoneum (principal); R18.8 Other ascites; D68.9 Coagulation defect, unspecified; E78.5 Hyperlipidemia, unspecified; T45.515A Adverse effect of anticoagulants, initial encounter; M19.90 Unspecified osteoarthritis, unspecified site; H40.9 Unspecified glaucoma; I10 Essential (primary) hypertension; N40.0 Benign prostatic hyperplasia without lower urinary tract symptoms; I71.2 Thoracic aortic aneurysm, without rupture; Z86.73 Personal history of transient ischemic attack (TIA), and cerebral infarction without residual deficits